=== PATIENT | female | born 1945 | race Caucasian/White ===

== ENCOUNTER 2017-07-14 03:24 | Inpatient (IN) ==
[2017-07-14] MEDS ORDERED: LIDOCAINE 1% 20 ML VIAL SQ ONE (03:25)
[2017-07-14 04:52] LABS: Basophils # (Auto) 0 K/mcL (0.0-0.3); Basophils % (Auto) 0.2 % (0.0-2.0); Eosinophils # (Auto) 0 K/mcL (0.0-0.7); Eosinophils % (Auto) 0.9 % (0.0-7.0); Granulocytes % (Auto) 43.7 % (38.0-78.0); Lymphocytes # (Auto) 2.4 K/mcL (1.5-4.8); Lymphocytes % (Auto) 55.1 % (15.5-49.0); Mean Cell Volume 99.5 fL (80.0-100.0); Mean Corpuscular HGB Conc 34.8 g/dL (31.0-36.0); Mean Corpuscular Hemoglobin 34.6 pg (26.0-34.0); Monocytes # (Auto) 0 K/mcL (0.1-0.9); Monocytes % (Auto) 0.1 % (1.0-12.0); Platelet Count 227 K/mcL (140-440); RBC 3.02 M/mcL (4.00-5.20); Red Cell Distribution Width 14.9 % (11.5-14.5)
[2017-07-14 04:59] LABS: Appearance,Urine CLEAR; Bacteria,Urine 0 /hpf (0); Bilirubin,Urine NEG (NEG); Color,Urine YELLOW; Glucose,Urine (UA) NEGATIVE (NEG); Leukocyte Esterase,Urine NEG /uL (NEG); Mucus,Urine FEW /hpf (0); Protein,Urine NEG (NEG); Specific Gravity,Urine 1.013 (1.000-1.035); Urine Blood NEG mg/dL (<0.03); Urine Hyaline Cast 16 /lpf (0-2); Urine RBC 15 /hpf (0-1); Urine Squamous Epithelial Cell 0 /hpf (0-4); Urine Transitional Epi Cells < 1 /hpf (0-2); Urine WBC < 1 /hpf (0-4); Urobilinogen,Urine NEG (NEG)
[2017-07-14 05:16] LABS: ALT/SGPT 13 U/l (0-40); Albumin 4.1 gm/dL (3.2-5.2); Albumin/Globulin Ratio 1.6 (1.0-2.3); Alkaline Phosphatase 64 U/L (39-117); Blood Urea Nitrogen 13 mg/dl (8-23)
[2017-07-14] MEDS ORDERED: LORazepam 2 MG/ML VIAL IV ONE ×8 (05:18→16:31)
[2017-07-14] MEDS ORDERED: LORazepam 2 MG/ML VIAL ONE ×2 (05:24→16:32)
--- NOTE | 2017-07-14 06:18 | Cat Scan Report ---
CLINICAL INFORMATION: Confusion COMPARISON: 08/26/2015 CT TECHNIQUE: 2.5 mm helical slices were obtained in the skull base to vertex. Following reconstruction, axial reformatted images were reviewed at bone and parenchymal windows. The exam was performed using radiation dose optimization techniques including, but not limited to, automated exposure control, adjustment of the mA and/or kV according to patient size and use of iterative reconstruction technique. FINDINGS: The ventricles, sulci, fissures, and cisterns are normal in size and configuration. No extra-axial fluid collections are identified. The cerebrum, brainstem and cerebellum are unremarkable. There is no evidence of hemorrhage, mass effect, or edema. Bone windows show no osseous abnormality. IMPRESSION: Normal head CT without contrast. Interpreted and Authenticated by: Ricardo Fisher 07/14/17
--- NOTE | 2017-07-14 06:46 | Emergency Department Note ---
Altered Mental Status HPI - General Chief Complaint: Altered Mental Status Stated Complaint: altered LOC Time Seen by Provider: 07/14/17 05:22 Source: family Mode of arrival: ambulatory Limitations: no limitations - History of Present Illness HPI Narrative: This patient started to become a bit confused last evening about 6 PM according to her . Even over the last couple of days the patient seemed to be having some difficulty with the phone and using the remote and he actually joked with her that they need to get checked for Alzheimer's. During the morning (3:00 am) he found her in the bathroom leaning over the sink and very confused. It did not appear that she even knew him. He called EMS and had her transferred to the hospital. In the Emergency room she is calm quietly on her side and does not want to be disturbed. When we try to talk to her or interact with her or move her around she becomes very confused does not want to cooperate. 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 According to the she has been doing quite well recently until last evening although there may have been some early signs in the last couple of days of something amiss. did indicate that she was incontinent of urine when he found her in the bathroom and had urinated in her clothing. MD complaint: altered mental status Onset (ago): hour(s) Timing confirmed by: spouse Severity: severe Consistency of Symptoms: getting worse Associated symptoms: Reports: incontinence - Related Data Home Medications Medication Instructions Recorded Confirmed aspirin 81 mg tablet,delayed 81 mg PO QDAY 06/27/17 07/11/17 release Previous Rx's Medication Instructions Recorded tramadol 50 mg tablet 50 mg PO Q6H PRN #30 tab 09/12/16 Estradiol Transdermal 0.3 mg TRANSDERMA QDAY #30 g 10/04/16 levothyroxine 75 mcg tablet 75 mcg PO QDAY #90 tab 02/07/17 methocarbamol 750 mg tablet 750 mg PO QHS PRN #20 tab 03/13/17 lorazepam 0.5 mg tablet 0.5 mg SUBLINGUAL HS PRN #30 tab 03/14/17 trazodone 50 mg tablet 50 mg PO QHS PRN #20 tab 05/11/17 Testosterone Transdermal 5 mg TRANSDERMA QDAY #30 g 06/23/17 amlodipine 5 mg tablet 5 mg PO QDAY #90 tab 04/03/18 hydrochlorothiazide 25 mg tablet 25 mg PO QDAY #90 tab 07/07/17 amoxicillin 875 mg-potassium 1 tab PO bid 10 Days #20 tab 07/11/17 clavulanate 125 mg tablet Allergies Allergy/AdvReac Type Severity Reaction Status Date / Time sumatriptan [From Imitrex] AdvReac Severe Other Verified 07/11/17 10:07 hydrocodone AdvReac Intermediate Nausea Verified 07/11/17 10:07 iodine AdvReac Unknown Hives Verified 07/11/17 10:07 IV CONTRAST Allergy Unknown NEEDS TO Uncoded 07/11/17 10:07 BE PREMEDICATED, HIVES Review of Systems Limitations: ROS unobtainable due to patients medical condition Past Medical History - Past Medical History [facility] Narrative: Medical History (Last Reviewed 07/11/17 @ 10:37 by Rossy Soto DO) Migraine (Acute) Cancer of lymph and blood cells (Chronic) Back pain (Chronic) Hypertension (Chronic) Thyroid disease (Chronic) 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) Anemia (Chronic) Claustrophobia (Chronic) Chronic lymphoid leukemia in remission (Acute) Hypothyroidism (acquired) (Chronic) Hyperlipidemia (Chronic) Allergic rhinitis (Acute) Past Surgical History History of cholecystectomy (Chronic) History of bone marrow biopsy (Chronic 03/11/15) History of dilation and curettage (Acute) Status post tubal ligation (Acute) Status post rotator cuff repair (Chronic) No pertinent past surgical history (Acute) History of colonoscopy (Chronic 06/29/10) Medical history: Reports: cancer (CLL in remission), hyperlipidemia, hypertension, migraine, thyroid disease, other (Menopause on hormone therapy) Psychiatric history: Reports: no psych history [employer]IAN history: Reports: bilateral tubal ligation, other (DNC) Surgical history ED: Reports: non-contributory - Social History smoking status: Never smoker Alcohol use: Reports: None Drug use: Reports: none Physical Exam Limitations: altered mental status General appearance: anxious, malaise Head: atraumatic, normocephalic Eye: Present: normal appearance ENT: normal exam Neck: Present: normal inspection Chest: Present: normal inspection Respiratory: Present: normal lung sounds bilaterally Cardiovascular: Present: regular rate, normal rhythm, normal heart sounds Abdominal: Present: soft. Absent: distention, tenderness Neurological: Present: alert Psychiatric: Present: normal affect, normal mood Skin: Present: warm, dry Course Vital Signs Temperature 99.7 F H 07/14/17 03:27 Pulse Rate 88 07/14/17 03:27 Respiratory Rate 19 07/14/17 03:27 Blood Pressure 108/80 07/14/17 03:27 Pulse Oximetry (%) 98 07/14/17 03:27 Temperature 99.7 F H 07/14/17 03:27 Pulse Rate 74 07/14/17 08:41 Respiratory Rate 19 07/14/17 04:52 Blood Pressure 120/52 07/14/17 08:38 Pulse Oximetry (%) 95 07/14/17 08:41 Altered Mental Status - MDM Narrative Medical decision making narrative: Lab work and CT scan were not remarkable. Lumbar puncture was performed by Dr. Fisher and is pending. Discussed the case with Dr. Wilson and the patient will be admitted to the ICU. We will start her on acyclovir vancomycin and Rocephin and ampicillin. At this time she is pretty sedated from getting the Ativan required to do the CT scan and lumbar puncture. - Lab Data Lab results reviewed: Yes I reviewed the patient's lab results. Result diagrams: 07/14/17 04:05 07/14/17 04:05 Lab Results 07/14/17 07/14/17 07/14/17 Range/Units 04:00 04:05 04:05 WBC 4.4 L (4.5-11.0) K/mcL RBC 3.02 L (4.00-5.20) M/mcL Hgb 10.5 L (12.0-15.0) g/dL Hct 30.1 L (36.0-48.0) % MCV 99.5 (80.0-100.0) fL MCH 34.6 H (26.0-34.0) pg MCHC 34.8 (31.0-36.0) g/dL RDW 14.9 H (11.5-14.5) % Plt Count 227 (140-440) K/mcL MPV 7.1 L (7.4-10.4) fL Gran % 43.7 (38.0-78.0) % Lymph % (Auto) 55.1 H (15.5-49.0) % Wood % (Auto) 0.1 L (1.0-12.0) % Eos % (Auto) 0.9 (0.0-7.0) % Baso % (Auto) 0.2 (0.0-2.0) % Gran # 1.9 (1.8-8.0) K/mcL Lymph # (Auto) 2.4 (1.5-4.8) K/mcL Wood # (Auto) 0 L (0.1-0.9) K/mcL Eos # (Auto) 0 (0.0-0.7) K/mcL Baso # (Auto) 0 (0.0-0.3) K/mcL VBG Lactic Acid (0.5-2.2) mmol/L Sodium 127 L (133-145) mmol/L Potassium 3.6 (3.3-5.1) mmol/L Chloride 87 L (96-108) mmol/L Carbon Dioxide 28 (22-30) mmol/L Anion Gap 12.0 (8-16) BUN 13 (8-23) mg/dl Creatinine 0.9 (0.6-1.1) mg/dl GFR Calculation 63 Glucose 146 H (70-105) mg/dL Calcium 9.0 (8.6-10.4) mg/dl Total Bilirubin 0.4 (0.0-1.0) mg/dL AST 17 (0-37) U/l ALT 13 (0-40) U/l Alkaline Phosphatase 64 (39-117) U/L Total Protein 6.6 (5.9-8.4) gm/dL Albumin 4.1 (3.2-5.2) gm/dL Globulin 2.5 (2.2-3.7) gm/dL Albumin/Globulin Ratio 1.6 (1.0-2.3) Urine Color Yellow Urine Appearance Clear Urine pH 7.0 (5.0-9.0) Ur Specific [place] 1.013 (1.000-1.035) Urine Protein Neg (NEG) mg/dL Urine Glucose (UA) Negative (NEG) mg/dL Urine Ketones 20 A (NEG) mg/dL Urine Occult Blood Neg (<0.03) mg/dL Urine Nitrate Neg (NEG) Urine Bilirubin Neg (NEG) mg/dL Urine Urobilinogen Neg (NEG) mg/dL Ur Leukocyte Esterase Neg (NEG) /uL Urine RBC 15 H (0-1) /hpf Urine WBC < 1 (0-4) /hpf Ur Squamous Epith Cells 0 (0-4) /hpf Ur Transition Epith Cell < 1 (0-2) /hpf Urine Bacteria 0 (0) /hpf Hyaline Casts 16 H (0-2) /lpf Urine Mucus Few (0) /hpf Ur Culture Indicated? No 07/14/17 Range/Units 04:05 WBC (4.5-11.0) K/mcL RBC (4.00-5.20) M/mcL Hgb (12.0-15.0) g/dL Hct (36.0-48.0) % MCV (80.0-100.0) fL MCH (26.0-34.0) pg MCHC (31.0-36.0) g/dL RDW (11.5-14.5) % Plt Count (140-440) K/mcL MPV (7.4-10.4) fL Gran % (38.0-78.0) % Lymph % (Auto) (15.5-49.0) % Wood % (Auto) (1.0-12.0) % Eos % (Auto) (0.0-7.0) % Baso % (Auto) (0.0-2.0) % Gran # (1.8-8.0) K/mcL Lymph # (Auto) (1.5-4.8) K/mcL Wood # (Auto) (0.1-0.9) K/mcL Eos # (Auto) (0.0-0.7) K/mcL Baso # (Auto) (0.0-0.3) K/mcL VBG Lactic Acid 1.1 (0.5-2.2) mmol/L Sodium (133-145) mmol/L Potassium (3.3-5.1) mmol/L Chloride (96-108) mmol/L Carbon Dioxide (22-30) mmol/L Anion Gap (8-16) BUN (8-23) mg/dl Creatinine (0.6-1.1) mg/dl GFR Calculation Glucose (70-105) mg/dL Calcium (8.6-10.4) mg/dl Total Bilirubin (0.0-1.0) mg/dL AST (0-37) U/l ALT (0-40) U/l Alkaline Phosphatase (39-117) U/L Total Protein (5.9-8.4) gm/dL Albumin (3.2-5.2) gm/dL Globulin (2.2-3.7) gm/dL Albumin/Globulin Ratio (1.0-2.3) Urine Color Urine Appearance Urine pH (5.0-9.0) Ur Specific [place] (1.000-1.035) Urine Protein (NEG) mg/dL Urine Glucose (UA) (NEG) mg/dL Urine Ketones (NEG) mg/dL Urine Occult Blood (<0.03) mg/dL Urine Nitrate (NEG) Urine Bilirubin (NEG) mg/dL Urine Urobilinogen (NEG) mg/dL Ur Leukocyte Esterase (NEG) /uL Urine RBC (0-1) /hpf Urine WBC (0-4) /hpf Ur Squamous Epith Cells (0-4) /hpf Ur Transition Epith Cell (0-2) /hpf Urine Bacteria (0) /hpf Hyaline Casts (0-2) /lpf Urine Mucus (0) /hpf Ur Culture Indicated? - Radiology Data Radiology results reviewed: Yes I reviewed the patient's radiology results. Disposition Pt seen by CHILD AND FAMILY SERVICES WORKER/PA only: No Clinical Impression: Altered mental status Disposition: Xfer As Inpt ([facility]) Condition: Fair Referrals: Seth Ramesh MD [Primary Care Provider] - Time of Disposition: 08:47
[2017-07-14] MEDS ORDERED: VANCOMYCIN 1,000 MG in 0.9 % SODIUM CHLORIDE 250 ML IV ONE ×2 (07:03→08:30)
[2017-07-14] MEDS ORDERED: cefTRIAXone 2 GM VIAL IV ONE (07:03)
[2017-07-14] MEDS ORDERED: AMPICILLIN SODIUM 2 GM VIAL IV ONE (07:03)
[2017-07-14] MEDS ORDERED: PROPOFOL 200 MG/20 ML VIAL IV ONE (08:00)
[2017-07-14] MEDS ORDERED: ACYCLOVIR SODIUM 500 MG VIAL IV ONE (08:00)
[2017-07-14] MEDS ORDERED: KETAMINE 100 MG/ML ML IV ONE ×3 (08:00→14:30)
[2017-07-14] MEDS ORDERED: MIDAZOLAM 5 MG/5 ML VIAL IV ONE ×3 (08:00→14:30)
--- NOTE | 2017-07-14 08:50 | XRay Report ---
CLINICAL INFORMATION: Obtundation COMPARISON: None. TECHNIQUE: The procedure and risks including the possibility of bleeding, infection, CSF leak requiring blood patch were explained to the patient. They understood and wished to proceed. They were administered Versed and Fentanyl intravenously prior to and during the procedure while pulse oximetry and blood pressure were monitored by the department of anesthesia. Please see medication sheet for dose. Total sedation time: Under fluoroscopic guidance, the L1-2 intralaminar space was marked, prepped and locally anesthetized with 1% Lidocaine using a 25 gauge needle. A 22 gauge spinal needle was placed under fluoroscopy through the intralaminar space into the thecal sac. Only 1 cc of sanguinous tinged CSF could be aspirated. It was sent to pathology for requested studies. There was no apparent complication. The patient tolerated procedure well. IMPRESSION: Fluoroscopic guided lumbar puncture yielding only 1 cc of sanguinous tinged CSF. No apparent complications. Interpreted and Authenticated by: Ricardo Fisher 07/14/17
[2017-07-14] MEDS ORDERED: AMPICILLIN SODIUM 2 GM in 0.9 % SODIUM CHLORIDE 100 ML IV ONE (09:00)
[2017-07-14] MEDS ORDERED: SODIUM CHLORIDE 0.9% IV ONE (09:30)
[2017-07-14] MEDS ORDERED: ACYCLOVIR SODIUM IV ONE (09:30)
[2017-07-14] MEDS ORDERED: THIAMINE 100 MG in 0.9 % SODIUM CHLORIDE 50 ML IV STA (10:29)
[2017-07-14] MEDS ORDERED: ACETAMINOPHEN 1,000 MG/100 ML BOTTLE IV PRN (10:29)
[2017-07-14] MEDS ORDERED: ONDANSETRON 4 MG/2 ML VIAL IV PRN (10:29)
[2017-07-14] MEDS ORDERED: VANCOMYCIN PER PHARMACY IV ONE (10:29)
[2017-07-14] MEDS ORDERED: AMPICILLIN SODIUM 2 GM VIAL IV SCH (10:29)
[2017-07-14] MEDS ORDERED: DEXTROSE 5%-NS 1,000 ML IV SCH (10:29)
[2017-07-14] MEDS ORDERED: ACETAMINOPHEN 325 MG TABLET PO PRN (10:29)
[2017-07-14] MEDS ORDERED: VANCOMYCIN PER PHARMACY IV SCH (10:45)
[2017-07-14] MEDS ORDERED: SODIUM CHLORIDE 0.9% IV SCH ×2 (10:45→17:00)
[2017-07-14] MEDS ORDERED: ACYCLOVIR SODIUM IV SCH ×2 (10:45→17:00)
--- NOTE | 2017-07-14 11:34 | Internal Med History&Physical ---
Medical - H&P: HPI Patient information: Note initiated : 07/14/17 at 11:23 am Service Date, if different from initiated Date: [] Patient: Sravanthi Ojeda 71 y/o F admitted on 07/14/17 for altered LOC. Chief Complaint: Confusion History of present illness: The patient is a 71-year-old female with past medical history significant for chronic lymphocytic leukemia in remission, hypertension, hypothyroidism, hypercholesterolemia and history of migraine as well as a history of disseminated zoster last October. She presents to the emergency department with confusion. History is obtained in speaking with the patient's family, which includes her , sister, granddaughter who are in the room, as well as speaking with Dr. Solis, and reviewing old records which are obtained and summarized below. The patient is unable to give history due to her mental status. Patient was doing fairly well until yesterday, somewhere about midday. She been treated with Augmentin as well as mucolytic for recurrent sinusitis, and received those prescriptions on the . Her cough is actually been improving. It been nonproductive. Patient ate breakfast normally yesterday. She spoke with her daughter on the phone about 10 AM, seemed to be her usual self. By about 3:00, when family arrived, they noted that she seemed to be a bit withdrawn, and her reported she did had some trouble trying to answer her phone in the early afternoon. That evening at dinner she did not have any conversation, she was withdrawn, did not eat any of her meal. The patient has been put her to bed about 5:30 PM. He told her job, she laughed at the joke appropriately. He checked on her hourly, when asked how she was she replied "fine". At 2:30 this morning, he awoke, found her in the bathroom standing up against a counter with her head drooped down. She been incontinent of urine. He thinks she had gotten up to use the commode, become confused, had an episode of incontinence and couldn't find her way back to bed. He carried her back to bed, called 911. He notes the bedding was dry, he suspects the incontinence occurred while she was up in the bathroom. She is brought to the hospital for further evaluation. In the emergency department, she cannot really give meaningful replies when she was evaluated by Dr. Solis. She would occasionally startle, and become agitated when moved about. When I see the patient, her sister relays that she recognizes her, but does not recognize her . In retrospect, her notes that a few days ago, she seemed to be fumbling with remotes, having trouble getting them to work as well as sometimes having difficulty activating or answering her phone. Her granddaughter volunteers that for the last week or so she had complained of feeling "down", tired and occasionally seem to have troubles finding her words. In retrospect, since her diagnosis of disseminated zoster last October she had had some episodes of low- grade confusion. Patient has not had any fevers, nor complained of fevers or chills of which her was aware. He has a history of migraine, had migraines back in April of several trips to the ED, but had not had any headaches recently. Did not complain of headache or neck pain yesterday or today. She had a cough for about a week, was seen in minor care on the , treated as noted above. Her cough and actually resolved by yesterday. It been nonproductive. She had no nausea, no vomiting, no abdominal pain, no diarrhea which her is aware. No known seizure disorder, no witnessed seizure activity. The does note that the bed was dry when he put her back to bed prior to calling 911 , suspect she been incontinent of urine while up in the bathroom. The family has noted no dysarthria, no facial droop, no focal limb weakness, no trouble swallowing or choking or other focal neurologic symptoms. Patient and her did travel and were in [place] throughout the month of March, returning home in April. No other travel. No birds in the home, there are 2 dogs and a cat. Patient has a history of CLL, has received chemotherapy on 2 occasions, the last was in 2016. She had a routine follow-up scheduled for July 25. In the emergency department, patient was confused, was unable to provide history , had stable vital signs. Laboratory analysis was notable for a mildly decreased serum sodium 127, white count of 4.4 thousand. Subsequently she has had lumbar puncture by interventional radiology, is now being admitted for further evaluation of encephalopathy, rule out meningitis/encephalitis. 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 Never smoked, rare alcohol use. Medical - H&P: Meds Home Medications Medication Instructions Recorded Confirmed Type tramadol 50 mg tablet 50 mg PO Q6H PRN #30 tab 09/12/16 07/11/17 Rx Estradiol Transdermal 0.3 mg TRANSDERMA QDAY #30 g 10/04/16 07/11/17 Rx levothyroxine 75 mcg tablet 75 mcg PO QDAY #90 tab 02/07/17 07/11/17 Rx methocarbamol 750 mg tablet 750 mg PO QHS PRN #20 tab 03/13/17 07/11/17 Rx lorazepam 0.5 mg tablet 0.5 mg SUBLINGUAL HS PRN #30 tab 03/14/17 07/11/17 Rx trazodone 50 mg tablet 50 mg PO QHS PRN #20 tab 05/11/17 07/11/17 Rx Testosterone Transdermal 5 mg TRANSDERMA QDAY #30 g 06/23/17 07/11/17 Rx amlodipine 5 mg tablet 5 mg PO QDAY #90 tab 06/27/17 07/11/17 Rx aspirin 81 mg tablet,delayed 81 mg PO QDAY 06/27/17 07/11/17 History release hydrochlorothiazide 25 mg tablet 25 mg PO QDAY #90 tab 07/07/17 07/11/17 Rx amoxicillin 875 mg-potassium 1 tab PO bid 10 Days #20 tab 07/11/17 07/11/17 Rx clavulanate 125 mg tablet Allergies Allergy/AdvReac Type Severity Reaction Status Date / Time sumatriptan [From Imitrex] AdvReac Severe Other Verified 07/11/17 10:07 hydrocodone AdvReac Intermediate Nausea Verified 07/11/17 10:07 iodine AdvReac Unknown Hives Verified 07/11/17 10:07 IV CONTRAST Allergy Unknown NEEDS TO Uncoded 07/11/17 10:07 BE PREMEDICATED, HIVES Medical - H&P: Exam - Constitutional Vitals: Temp Pulse Resp BP Pulse Ox 99.7 F H 78 19 126/47 95 07/14/17 10:39 07/14/17 10:39 07/14/17 10:39 07/14/17 10:39 07/14/17 10:39 GENERAL: Eyes closed, opened eyes to her sister's voice only, started pulling on betting and moving around when examined. HEENT: Atraumatic. Pupils 3 mm and reactive to direct light. No spontaneous nystagmus. Conjunctiva clear, no scleral icterus. Oropharynx with moist mucous membranes, no lip or gum lesions. Tongue midline. Face symmetric NECK: Normal range of motion with rotation to the left and right. Patient resists passive flexion of neck, though not rigid. No thyromegaly appreciated. RESPIRATORY: Breath sounds clear bilaterally, with shallow inspiratory effort. Respiratory effort is unlabored. CARDIOVASCULAR: Regular rate and rhythm, no murmur gallop or rub. No peripheral edema. Carotid pulses 2+ without bruit. Pedal pulses 2+. GI: Abdomen soft, no apparent tenderness. Bowel sounds are present. No hepatosplenomegaly. LYMPHATIC: No cervical or supraclavicular lymphadenopathy appreciated. MUSCULOSKELETAL: No joint erythema or swelling, moves all 4 extremities equally spontaneously. Range of motion appears normal. Muscle mass normal. SKIN: Intact, warm, dry. No rash, no petechiae, no purpura. Residual hyperpigmented area on the superior aspect of the forehead and scalp. Scattered postherpetic hyperpigmented lesions on the legs. Skin turgor normal. NEUROLOGIC: Exam difficult, face is symmetric, pupils are reactive to direct light bilaterally. No spontaneous nystagmus. Tongue is midline. She moves all extremities spontaneously. Muscle tone is normal. PSYCHIATRIC: Encephalopathy, unable to test orientation, affect or insight. Medical - H&P: Reslt - Labs CBC & Chem 7: 07/14/17 04:05 07/14/17 04:05 Labs: Short CBC 07/14/17 Range/Units 04:05 WBC 4.4 L (4.5-11.0) K/mcL Hgb 10.5 L (12.0-15.0) g/dL Hct 30.1 L (36.0-48.0) % Plt Count 227 (140-440) K/mcL BMP 07/14/17 04:05 Sodium 127 L Potassium 3.6 Chloride 87 L Carbon Dioxide 28 BUN 13 Creatinine 0.9 Glucose 146 H Calcium 9.0 Liver Function 07/14/17 Range/Units 04:05 Total Bilirubin 0.4 (0.0-1.0) mg/dL AST 17 (0-37) U/l ALT 13 (0-40) U/l Alkaline Phosphatase 64 (39-117) U/L Albumin 4.1 (3.2-5.2) gm/dL Urine 07/14/17 Range/Units 04:00 Urine Color Yellow Urine Appearance Clear Urine pH 7.0 (5.0-9.0) Ur Specific [place] 1.013 (1.000-1.035) Urine Protein Neg (NEG) mg/dL Urine Glucose (UA) Negative (NEG) mg/dL - Imaging and Cardiology Chest x-ray Status: image reviewed by me Additional comments: clear, no infiltrate CT scan - head Status: image reviewed by me Additional comments: IMPRESSION: Normal head CT without contrast Medical - H&P: A/P (1) Encephalopathy acute Current visit: Yes Status: Acute (2) Chronic lymphoid leukemia in remission Problem details: In the lymph nodes, not in the blood, like they first thought in 2006 Current visit: No Status: Acute (3) Hypertension Current visit: No Status: Chronic (4) Hypothyroidism (acquired) Current visit: No Status: Chronic - Narrative A/P Narrative: 71-year-old female with fairly abrupt onset of altered mental status, presenting with encephalopathy. Encephalopathy. Concerning for [employer] infection (meningitis or encephalitis) given the fairly abrupt onset. However there is a history of some mild cognitive dysfunction earlier this week, perhaps for the last several weeks that may suggest a more indolent process. Differential diagnosis concerning for HSV encephalitis or VZV encephalitis, particularly given her recent history of disseminated zoster. Bacterial meningitis will need to be ruled out, as well as other aseptic meningitis syndromes. Other possibilities include fungal meningitis, including Cryptococcus or Coccidioides (recent travel to [place]). Patient does have CLL in remission, though has not received stem cell transplant , HHV6, EBV and CMV remain in the differential, as does adenovirus (though no antecedent GI symptoms). VDRL will need to be evaluated, as other noninfectious causes including checking TSH, checking ABG to rule out occult hypercapnia, checking urine drug screen for occult ingestion. Recurrent CLL with meningeal involvement needs to be considered. Cerebral ischemia also is in the differential, though no evidence of stroke on initial CT. Pending results of the remainder of the workup, MRI of the head may need to be obtained. The patient has a history of hypertension, blood pressure is normal, lower suspicion this represents hypertensive encephalopathy or press syndrome. She also has a history of migraine, has not had recent migraines, generally has auras with headache associated with migraine. Lower suspicion this represents a post ictal state or nonstatus epilepticus, though this will be kept in mind. Thiamine supplementation will also be given. The initial LP has been obtained, results are pending. However less than 1 mL of CSF was able to be obtained. Send out labs including viral PCR's and not be done on the current sample. Depending on the results of the current sample, particularly if no evidence of bacterial infection, she may need repeat lumbar puncture for further CSF sampling and testing including Coccidioides antibody, encephalitis panel, HSV and VZV testing. Plan: 1. Inpatient admission to telemetry for close neurologic monitoring 2. Droplet percussions 3. Treat with vancomycin, ampicillin (to cover listeria), ceftriaxone as well as acyclovir. Narrow as able. 4. Follow-ups initial CSF results 5. Check ABG, TSH, urine drug screen 6. Provide thiamine supplement 7. Serial neuro checks 8. Will consider MRI if above studies nonrevealing 9. May require repeat CSF sampling for further diagnostic studies Hypertension. Currently normotensive. Patient's currently unable to take oral in take. For now we'll follow her blood pressure, use intravenous when necessary's if needed. Plan: Monitor, when necessary IV BP meds. CLL, currently in remission. Old records are being sought. History of disseminated zoster, October 2016. No vesicular or other lesions to suggest cutaneous outbreak. VZV encephalitis though remains in the differentials above. CODE STATUS: Discussed with the patient's and family, at this point could status is full code. If airway protection is an issue, he may need to intubate to protect airway. Prophylaxis: Lovenox, IV PPI
[2017-07-14 11:50] LABS: Appearance,CSF CLEAR; Nucleated Cells,CSF 68 /cumm (0-5); Red Blood Cell,CSF 2165 /cumm (0-1)
[2017-07-14 11:53] LABS: Amphetamine Screen,Urine NONE DETECTED (NONDETECTED); Benzodiazepines Screen,Urine SUSPECT POSITIVE (NONDETECTED); Cocaine Screen,Urine NONE DETECTED (NONDETECTED); Opiate Screen,Urine SUSPECT POSITIVE (NONDETECTED); Oxycodone, Urine Screen NONE DETECTED (NONDETECTED)
[2017-07-14] MEDS ORDERED: LORazepam 2 MG/ML VIAL IV PRN (12:27)
[2017-07-14] MEDS ORDERED: 0.9 % SODIUM CHLORIDE 10 ML SYRINGE IV SCH ×2 (14:00→21:00)
[2017-07-14] MEDS ORDERED: GLYCOPYRROLATE 0.2 MG/ML VIAL IV ONE ×2 (14:25→14:30)
[2017-07-14] MEDS ORDERED: AMPICILLIN SODIUM 2 GM in 0.9 % SODIUM CHLORIDE 100 ML IV SCH (15:00)
[2017-07-14] MEDS ORDERED: ACYCLOVIR SODIUM 500 MG VIAL IV SCH (15:00)
[2017-07-14] MEDS ORDERED: 0.9 % SODIUM CHLORIDE 10 ML SYRINGE IV PRN (15:00)
--- NOTE | 2017-07-14 16:00 | Procedure Note ---
Procedures - Central Line Placement Right IJ Consent obtained: written consent Time out performed: Yes Patient placed on monitor/pulse ox: Yes MD prep: mask, sterile gown, sterile gloves, cap Central line prep: 2% Chlorhexidine scrub (X2) Local anesthesia used: lidocaine 1% Amount of anesthesia used (mls): 10 Ultrasound used for placement: No Central line lumen inserted: quad, 16 cm Post procedure: sutured in place, good blood return, all ports aspirated, flushed, capped, sterile dressing applied Post procedure x-ray: tip of catheter in good position, no pneumothorax seen Patient tolerated procedure: well, no complications, other (1st attempt RSCV, unable to wire, change to R IJ, without difficulty.) Complications: none, hematoma at puncture site (RSCV) Additional comments: called by luis a rodriguez for central line in ICU for aloc. presumably ordered by hospitalist, no communication to that effect. also notified that pt to return to [facility] for 2nd attempt lp. spoke w vinicio , he is ok to combine central line/lp by ks w sedation in icu. pt requires significant sedation due to aloc. RSCV attempt, unable tho wire. change to RIJ, no problem. spoke w family, noted csf heme tube 1-4, possible trauma from prior attempt vs SAH. family aware.
--- NOTE | 2017-07-14 16:05 | XRay Report ---
CLINICAL INFORMATION: Central line placement COMPARISON: 07/11/2017 FINDINGS: Right IJ central line tip overlies the SVC right atrial junction. No pneumothorax or other complication from line placement. Cardiomediastinal silhouette and pulmonary vessels are normal for portable technique. Lungs are clear. No effusions. IMPRESSION: Negative chest. Right IJ central line in satisfactory position. No complication from line placement. Interpreted and Authenticated by: Ricardo Fisher 07/14/17
--- NOTE | 2017-07-14 18:00 | Magnetic Resonance Report ---
CLINICAL INFORMATION: Obtundation COMPARISON: None. TECHNIQUE: Sagittal T1 FLAIR, axial diffusion ADC, T1 FLAIR, T2 FLAIR propeller, T2 propeller gradient, T1 post Magnevist and coronal T1 FLAIR post Magnevist images were acquired. FINDINGS: The ventricles, sulci, fissures and cisterns are symmetrically enlarged compatible with mild atrophy - expected for age. No extra-axial fluid collections or masses appreciated. There are multiple (greater than 15) foci of restricted diffusion generally within the cortical medullary junction of both cerebral hemispheres ranging between three and 11 mm. Axial T2 FLAIR images show modest edema surrounding many of the larger lesions. Findings are most compatible with multiple nonhemorrhagic lacunar infarcts in a watershed distribution. The axial T2 FLAIR images also show scattered chronic ischemic foci in the cerebral white matter typical for age. The post Magnevist images show mild vascular enhancement of all of the higher order cerebral arteries the cerebral hemisphere which is presumably a large reperfusion phenomenon related to the multiple tiny nonhemorrhagic acute infarcts. A 4 mm focus of enhancement enhancement in the frontal white matter (axial image nine) and a 3 mm focus of enhancement in the right lentiform nucleus (axial image 11) likely represent enhancing small infarcts. No evidence of hemorrhage , edema or mass effect. Signal void in intracerebral arteries, extra-axial cranial nerves, pituitary and orbits are normal. IMPRESSION: Multiple small foci of restricted diffusion in the cortical medullary junction of both cerebral hemispheres. Findings are most compatible with multiple acute nonhemorrhagic lacunar infarcts. Most likely explanation would be emboli from a cardiac source. It is possible, but less likely, that these represent septic emboli. Please correlate with transesophageal echocardiogram to exclude cardiac thrombus Interpreted and Authenticated by: Ricardo Fisher 07/14/17
[2017-07-14] MEDS ORDERED: GADOBUTROL 7.5 MMOL/7.5 ML VIAL IV ONE (18:02)
--- NOTE | 2017-07-14 20:25 | Discharge Summary ---
Medical - DS: Prov Patient information: Note initiated : 07/14/17 at 8:21 pm Service Date, if different from initiated Date: [] Patient: Sravanthi Ojeda 71 y/o F admitted on 07/14/17 for altered LOC. Date of admission: 07/14/17 10:30 Discharge date: 07/14/17 Primary care physician: Seth Ramesh Admitting clinician: Christen Barboza Consults: 07/14/17 06:52 Consult to Physician [CONS] Stat Comment: Consulting Provider: Christen Barboza Reason For Exam: Physician to Consult 07/14/17 08:28 Consult to Physician [CONS] Stat Comment: Consulting Provider: Regina Lorenzo Reason For Exam: Physician to Consult Discharging clinician: Christen Barboza Medical - DS: Meds - Discharge Medications Active and Home Medications: Home Medications tramadol 50 mg tablet 50 mg PO Q6H PRN #30 tab 09/12/16 [Rx Confirmed 07/11/17 Last Taken 11/08/16] Estradiol Transdermal 0.3 mg TRANSDERMA QDAY #30 g 10/04/16 [Rx Confirmed Last Taken 11/14/16] levothyroxine 75 mcg tablet 75 mcg PO QDAY #90 tab 02/07/17 [Rx Confirmed Last Taken Unknown] methocarbamol 750 mg tablet 750 mg PO QHS PRN #20 tab 03/13/17 [Rx Confirmed Last Taken Unknown] lorazepam 0.5 mg tablet 0.5 mg SUBLINGUAL HS PRN #30 tab 03/14/17 [Rx Confirmed 07/11/17 Last Taken Unknown] trazodone 50 mg tablet 50 mg PO QHS PRN #20 tab 05/11/17 [Rx Confirmed 07/11/17 Last Taken Unknown] Testosterone Transdermal 5 mg TRANSDERMA QDAY #30 g 06/23/17 [Rx Confirmed 07/11 Last Taken Unknown] amlodipine 5 mg tablet 5 mg PO QDAY #90 tab 06/27/17 [Rx Confirmed 07/11/17 Last Taken Unknown] aspirin 81 mg tablet,delayed release 81 mg PO QDAY 06/27/17 [History Confirmed 07/11/17 Last Taken Unknown] hydrochlorothiazide 25 mg tablet 25 mg PO QDAY #90 tab 07/07/17 [Rx Confirmed Last Taken Unknown] amoxicillin 875 mg-potassium clavulanate 125 mg tablet 1 tab PO bid 10 Days #20 tab 07/11/17 [Rx Confirmed 07/11/17 Last Taken Unknown] Medical - DS: Hosp Hospital course: The patient is a 71-year-old female who presented with encephalopathy. She had seemed withdrawn, minimally communicative at dinner. checked on her hourly overnight. At 2:30 AM, she was leaning against a counter in the bathroom , had been incontinent of urine while in the bathroom. She was confused, did not seem to recognize him. He called 911 at that point where she presented to the ED. For full details, please see my history and physical. Patient was admitted and evaluated further for causes of encephalopathy, rule out meningitis/rule out encephalitis. Her past history is significant for CLL, status post chemotherapy 2, in remission, as well as a history of disseminated zoster in October 2016. She receives her cancer care at [facility] in [place]. Her database coordinator, evaluated the zoster is Buddy Montejo M.D. at [facility] [place]. The initial CSF sample which was obtained under fluoroscopic guidance only yielded 1 mL of fluid. He was initially clear, and became blood tinged. Initial cell count was 2165 RBC, 68 nucleated cells. Glucose was 60, total protein elevated at 79. Gram stain showed many red cells, moderate mononuclear cells, rare polys and no organisms. She was initially treated broadly with vancomycin, ceftriaxone and ampicillin. She was also treated with acyclovir for possible herpetic encephalitis or zoster encephalitis. Given the negative bacterial workup, repeat LP was obtained in the afternoon, further fluid was sent for HSV and VZV PCR, encephalopathy panel, cryptococcal and Coccidioides studies (she and her spend March in [place]). Shes had no other travel to tropical her other locations. Further workup included MRI, which was finally obtained. That showed rather than areas of meningeal involvement, multiple small foci of restricted diffusion in the cortical medullary junction of both cerebral hemispheres, most compatible with multiple acute nonhemorrhagic lacunar infarcts. Suggesting emboli from a cardiac source. Septic emboli are also in the differential, though bloodstream infection is not currently suspected. Further review of the chart as well as rhythm strips obtained since her arrival to this facility if shown no history or current evidence of atrial fibrillation. 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 Dr. Cooper agreed patient would benefit from inpatient neurology evaluation. Neither inpatient nor outpatient neurology are available at this facility. Echocardiogram is not available for several days and transesophageal echocardiography is not available at all at this facility. The patient did not receive antithrombotics or anticoagulants or statin at this discharge, therapy/rehab evaluations due to transfer to a higher level of care. Likewise, she was discharged in less than 2 midnights due to the transfer. At the time of transfer, the patient is still demonstrating encephalopathy. She is still when quiet, though startles and is agitated with any movement or interventions. Her MAXIMUM TEMPERATURE has been 99.7, pulse has been stable, blood pressure in the 110-120s systolic. She is maintaining saturations of 95- 100% on room air. Medications at the time of transfer Acetaminophen when necessary Enoxaparin 40 mg daily Lorazepam 1 mg every 2 hours when necessary Zofran 4 mg every 4-6 hours when necessary Acyclovir 640 mg every 8 hours Ampicillin 2 g IV every 6 hours Ceftriaxone 2 g IV every 12 hours Vancomycin 1 g daily. 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 Secondary discharge diagnosis: Chronic lymphocytic leukemia, and remission Hypertension History of disseminated zoster, October 2016 Hypothyroidism History of migraine - Time Spent with Patient Total time spent providing and/or coordinating discharge services: Greater than 30 minutes Medical - DS: Exam - Constitutional Vitals: Vital Signs Temp Pulse Pulse Resp BP BP BP 07/14/17 20:02 98.2 F 73 107/40 07/14/17 20:00 98.2 F 72 76 16 101/65 107/40 07/14/17 19:46 98.7 F 16 98/54 07/14/17 19:31 98/54 04/20/18 19:01 101/40 07/1418 18:31 71 107/44 2018 18:15 98.7 F 16 107/47 18 18:00 69 107/47 18 17:31 114/79 18 17:00 76 14 137/47 18 16:55 77 14 149/58 2018 16:50 74 14 157/51 18 16:45 74 16 169/55 18 16:40 16 93/53 18 16:30 18 148/62 18 16:20 75 18 154/65 18 11:01 73 117/58 07/14/17 10:46 70 116/41 07/14/17 10:44 99 F 72 110/46 18 10:39 99.7 F H 78 19 126/47 07/14/17 10:30 99 F 77 16 110/46 07/14/17 10:23 78 07/14/17 09:30 78 126/47 07/14/17 09:01 80 105/48 07/14/17 08:54 73 18 08:45 72 109/48 18 08:41 74 07/14/17 08:38 74 120/52 18 05:40 86 146/54 18 04:52 87 19 07/14/17 03:27 99.7 F H 88 19 108/80 Pulse Ox 07/14/17 20:02 97 07/14/17 20:00 100 07/14/17 19:46 97 18 19:31 18 19:01 18 18:31 96 18 18:15 97 18 18:00 96 18 17:31 18 17:00 97 07/14/17 16:55 97 07/14/17 16:50 96 18 16:45 96 07/14/17 16:40 99 18 16:30 97 18 16:20 96 07/14/17 11:01 99 07/14/17 10:46 99 07/14/17 10:44 100 07/14/17 10:39 95 07/14/17 10:30 100 07/14/17 10:23 95 07/14/17 09:30 97 07/14/17 09:01 97 07/14/17 08:54 97 07/14/17 08:45 95 07/14/17 08:41 95 07/14/17 08:38 95 07/14/17 05:40 98 07/14/17 04:52 98 07/14/17 03:27 98 Intake and Output 07/14/17 07/14/17 07/14/17 05:59 13:59 21:59 Intake Total 501 / 501 483 / 483 Balance 501 / 501 483 / 483 Intake: IV 501 / 501 483 / 483 Zovirax 640 mg In Sodium 100 / 100 Chloride 0.9% 100 ml @ 100 mls/ hr IV ONCE ONE Rx#:[id number] Ampicillin 2 gm In Sodium 100 / 100 100 / 100 Chloride 0.9% 100 ml @ 100 mls/ hr IV Q6H [facility] Rx#:[id number] Dextrose 5%-Ns IV Solution 1, 383 / 383 000 ml @ 100 mls/hr IV .Q10H [facility] Rx#:[id number] Vancomycin 1,000 mg In Sodium 250 / 250 Chloride 0.9% 250 ml @ 250 mls/ hr IV ONCE ONE Rx#:[id number] Other: Weight 141 lb 137 lb 12.8 oz Patient Weight 07/15/17 05:59 Weight 137 lb 12.8 oz Unchanged from admission earlier today- General: Quiet at rest, becomes agitated with any movement. Chest: Clear Cardiovascular: Regular, in sinus rhythm on monitor Abdomen: Soft nontender Neuro: Moves all extremities equally, does not follow commands, demonstrates encephalopathy. Medical - DS: Data Procedures and tests throughout hospitalization: Fluoroscopic guided lumbar puncture Central line placement Repeat lumbar puncture with further CSF collection CT of the head MRI of the head Labs on day of discharge: Labs from last 24 hours 07/14/17 07/14/17 07/14/17 15:45 15:45 15:45 WBC RBC Hgb Hct MCV MCH MCHC RDW Plt Count MPV Gran % Lymph % (Auto) Quay % (Auto) Eos % (Auto) Baso % (Auto) Gran # Lymph # (Auto) Quay # (Auto) Eos # (Auto) Baso # (Auto) VBG Lactic Acid Sodium Potassium Chloride Carbon Dioxide Anion Gap BUN Creatinine GFR Calculation Glucose Calcium Total Bilirubin AST ALT Alkaline Phosphatase Total Protein Albumin Globulin Albumin/Globulin Ratio TSH Urine Color Urine Appearance Urine pH Ur Specific [place] Urine Protein Urine Glucose (UA) Urine Ketones Urine Occult Blood Urine Nitrate Urine Bilirubin Urine Urobilinogen Ur Leukocyte Esterase Urine RBC Urine WBC Ur Squamous Epith Cells Ur Transition Epith Cell Urine Bacteria Hyaline Casts Urine Mucus Ur Culture Indicated? CSF Source CSF Appearance CSF Color CSF RBC CSF Total Nucleated Auto CSF Glucose CSF Total Protein CSF VDRL Pending CSF Coccidioides Ab CF Pending CSF Cryptococcus Ag Pending CSF Herpes I IgG Ab Pending CSF Herpes I IgM Ab Pending CSF Herpes II IgM Ab Pending CSF Lymph choriomen IgG Pending CSF Lymph choriomen IgM Pending CSF Lymph choriomen Int Pending CSF Mumps Virus IgG Ab Pending CSF Mumps Virus IgM Ab Pending CSF Mumps Ab Interpret Pending CSF Rubeola IgG Ab Pending CSF Rubeola IgM Ab Pending CSF Rubeola Interpret Pending CSF [place] IgG Ab Pending CSF [place] IgM Ab Pending Urine Opiates Screen Ur Opiates Confirm Ur Oxycodone Screen Urine Methadone Screen Ur Methadone Confirm Ur Barbiturates Screen Ur Barbiturate Confirm Ur Phencyclidine Scrn Urine PCP Confirm Ur Amphetamines Screen U Benzodiazepines Scrn U Benzodiazepine Confm Urine Cocaine Screen Urine Cocaine Confirm U Cannabinoids Confirm U Marijuana (THC) Screen Urine Alcohol Herpes Simplex Source HSV II IgG Index Pending Herpes Simplex DNA PCR HSV I DNA PCR HSV II DNA PCR VZV IgM Ab (IFA) Pending VZV Total Antibody Pending Varicella-Zoster Interp Pending 07/14/17 07/14/17 07/14/17 15:45 10:55 07:02 WBC RBC Hgb Hct MCV MCH MCHC RDW Plt Count MPV Gran % Lymph % (Auto) Quay % (Auto) Eos % (Auto) Baso % (Auto) Gran # Lymph # (Auto) Quay # (Auto) Eos # (Auto) Baso # (Auto) VBG Lactic Acid Sodium Potassium Chloride Carbon Dioxide Anion Gap BUN Creatinine GFR Calculation Glucose Calcium Total Bilirubin AST ALT Alkaline Phosphatase Total Protein Albumin Globulin Albumin/Globulin Ratio TSH Urine Color Urine Appearance Urine pH Ur Specific [place] Urine Protein Urine Glucose (UA) Urine Ketones Urine Occult Blood Urine Nitrate Urine Bilirubin Urine Urobilinogen Ur Leukocyte Esterase Urine RBC Urine WBC Ur Squamous Epith Cells Ur Transition Epith Cell Urine Bacteria Hyaline Casts Urine Mucus Ur Culture Indicated? CSF Source CSF Appearance CSF Color CSF RBC CSF Total Nucleated Auto CSF Glucose 60 CSF Total Protein CSF VDRL CSF Coccidioides Ab CF CSF Cryptococcus Ag CSF Herpes I IgG Ab CSF Herpes I IgM Ab CSF Herpes II IgM Ab CSF Lymph choriomen IgG CSF Lymph choriomen IgM CSF Lymph choriomen Int CSF Mumps Virus IgG Ab CSF Mumps Virus IgM Ab CSF Mumps Ab Interpret CSF Rubeola IgG Ab CSF Rubeola IgM Ab CSF Rubeola Interpret CSF [place] IgG Ab CSF [place] IgM Ab Urine Opiates Screen Suspect positive A Ur Opiates Confirm Not Reportable Ur Oxycodone Screen None detected Urine Methadone Screen None detected Ur Methadone Confirm Not Reportable Ur Barbiturates Screen None detected Ur Barbiturate Confirm Not Reportable Ur Phencyclidine Scrn None detected Urine PCP Confirm Not Reportable Ur Amphetamines Screen None detected U Benzodiazepines Scrn Suspect positive A U Benzodiazepine Confm Not Reportable Urine Cocaine Screen None detected Urine Cocaine Confirm Not Reportable U Cannabinoids Confirm Not Reportable U Marijuana (THC) Screen None detected Urine Alcohol None detected Herpes Simplex Source Pending HSV II IgG Index Herpes Simplex DNA PCR Pending HSV I DNA PCR Pending HSV II DNA PCR Pending VZV IgM Ab (IFA) VZV Total Antibody Varicella-Zoster Interp 07/14/17 07/14/17 07/14/17 06:58 06:57 04:05 WBC RBC Hgb Hct MCV MCH MCHC RDW Plt Count MPV Gran % Lymph % (Auto) Quay % (Auto) Eos % (Auto) Baso % (Auto) Gran # Lymph # (Auto) Quay # (Auto) Eos # (Auto) Baso # (Auto) VBG Lactic Acid Sodium Potassium Chloride Carbon Dioxide Anion Gap BUN Creatinine GFR Calculation Glucose Calcium Total Bilirubin AST ALT Alkaline Phosphatase Total Protein Albumin Globulin Albumin/Globulin Ratio TSH 1.12 Urine Color Urine Appearance Urine pH Ur Specific [place] Urine Protein Urine Glucose (UA) Urine Ketones Urine Occult Blood Urine Nitrate Urine Bilirubin Urine Urobilinogen Ur Leukocyte Esterase Urine RBC Urine WBC Ur Squamous Epith Cells Ur Transition Epith Cell Urine Bacteria Hyaline Casts Urine Mucus Ur Culture Indicated? CSF Source Tube 1 CSF Appearance Clear CSF Color [place] CSF RBC 2165 H CSF Total Nucleated Auto 68 H CSF Glucose CSF Total Protein 79 H CSF VDRL CSF Coccidioides Ab CF CSF Cryptococcus Ag CSF Herpes I IgG Ab CSF Herpes I IgM Ab CSF Herpes II IgM Ab CSF Lymph choriomen IgG CSF Lymph choriomen IgM CSF Lymph choriomen Int CSF Mumps Virus IgG Ab CSF Mumps Virus IgM Ab CSF Mumps Ab Interpret CSF Rubeola IgG Ab CSF Rubeola IgM Ab CSF Rubeola Interpret CSF [place] IgG Ab CSF [place] IgM Ab Urine Opiates Screen Ur Opiates Confirm Ur Oxycodone Screen Urine Methadone Screen Ur Methadone Confirm Ur Barbiturates Screen Ur Barbiturate Confirm Ur Phencyclidine Scrn Urine PCP Confirm Ur Amphetamines Screen U Benzodiazepines Scrn U Benzodiazepine Confm Urine Cocaine Screen Urine Cocaine Confirm U Cannabinoids Confirm U Marijuana (THC) Screen Urine Alcohol Herpes Simplex Source HSV II IgG Index Herpes Simplex DNA PCR HSV I DNA PCR HSV II DNA PCR VZV IgM Ab (IFA) VZV Total Antibody Varicella-Zoster Interp 07/14/17 07/14/17 07/14/17 04:05 04:05 04:05 WBC 4.4 L RBC 3.02 L Hgb 10.5 L Hct 30.1 L MCV 99.5 MCH 34.6 H MCHC 34.8 RDW 14.9 H Plt Count 227 MPV 7.1 L Gran % 43.7 Lymph % (Auto) 55.1 H Quay % (Auto) 0.1 L Eos % (Auto) 0.9 Baso % (Auto) 0.2 Gran # 1.9 Lymph # (Auto) 2.4 Quay # (Auto) 0 L Eos # (Auto) 0 Baso # (Auto) 0 VBG Lactic Acid 1.1 Sodium 127 L Potassium 3.6 Chloride 87 L Carbon Dioxide 28 Anion Gap 12.0 BUN 13 Creatinine 0.9 GFR Calculation 63 Glucose 146 H Calcium 9.0 Total Bilirubin 0.4 AST 17 ALT 13 Alkaline Phosphatase 64 Total Protein 6.6 Albumin 4.1 Globulin 2.5 Albumin/Globulin Ratio 1.6 TSH Urine Color Urine Appearance Urine pH Ur Specific [place] Urine Protein Urine Glucose (UA) Urine Ketones Urine Occult Blood Urine Nitrate Urine Bilirubin Urine Urobilinogen Ur Leukocyte Esterase Urine RBC Urine WBC Ur Squamous Epith Cells Ur Transition Epith Cell Urine Bacteria Hyaline Casts Urine Mucus Ur Culture Indicated? CSF Source CSF Appearance CSF Color CSF RBC CSF Total Nucleated Auto CSF Glucose CSF Total Protein CSF VDRL CSF Coccidioides Ab CF CSF Cryptococcus Ag CSF Herpes I IgG Ab CSF Herpes I IgM Ab CSF Herpes II IgM Ab CSF Lymph choriomen IgG CSF Lymph choriomen IgM CSF Lymph choriomen Int CSF Mumps Virus IgG Ab CSF Mumps Virus IgM Ab CSF Mumps Ab Interpret CSF Rubeola IgG Ab CSF Rubeola IgM Ab CSF Rubeola Interpret CSF [place] IgG Ab CSF [place] IgM Ab Urine Opiates Screen Ur Opiates Confirm Ur Oxycodone Screen Urine Methadone Screen Ur Methadone Confirm Ur Barbiturates Screen Ur Barbiturate Confirm Ur Phencyclidine Scrn Urine PCP Confirm Ur Amphetamines Screen U Benzodiazepines Scrn U Benzodiazepine Confm Urine Cocaine Screen Urine Cocaine Confirm U Cannabinoids Confirm U Marijuana (THC) Screen Urine Alcohol Herpes Simplex Source HSV II IgG Index Herpes Simplex DNA PCR HSV I DNA PCR HSV II DNA PCR VZV IgM Ab (IFA) VZV Total Antibody Varicella-Zoster Interp 07/14/17 04:00 WBC RBC Hgb Hct MCV MCH MCHC RDW Plt Count MPV Gran % Lymph % (Auto) Quay % (Auto) Eos % (Auto) Baso % (Auto) Gran # Lymph # (Auto) Quay # (Auto) Eos # (Auto) Baso # (Auto) VBG Lactic Acid Sodium Potassium Chloride Carbon Dioxide Anion Gap BUN Creatinine GFR Calculation Glucose Calcium Total Bilirubin AST ALT Alkaline Phosphatase Total Protein Albumin Globulin Albumin/Globulin Ratio TSH Urine Color Yellow Urine Appearance Clear Urine pH 7.0 Ur Specific [place] 1.013 Urine Protein Neg Urine Glucose (UA) Negative Urine Ketones 20 A Urine Occult Blood Neg Urine Nitrate Neg Urine Bilirubin Neg Urine Urobilinogen Neg Ur Leukocyte Esterase Neg Urine RBC 15 H Urine WBC < 1 Ur Squamous Epith Cells 0 Ur Transition Epith Cell < 1 Urine Bacteria 0 Hyaline Casts 16 H Urine Mucus Few Ur Culture Indicated? No CSF Source CSF Appearance CSF Color CSF RBC CSF Total Nucleated Auto CSF Glucose CSF Total Protein CSF VDRL CSF Coccidioides Ab CF CSF Cryptococcus Ag CSF Herpes I IgG Ab CSF Herpes I IgM Ab CSF Herpes II IgM Ab CSF Lymph choriomen IgG CSF Lymph choriomen IgM CSF Lymph choriomen Int CSF Mumps Virus IgG Ab CSF Mumps Virus IgM Ab CSF Mumps Ab Interpret CSF Rubeola IgG Ab CSF Rubeola IgM Ab CSF Rubeola Interpret CSF [place] IgG Ab CSF [place] IgM Ab Urine Opiates Screen Ur Opiates Confirm Ur Oxycodone Screen Urine Methadone Screen Ur Methadone Confirm Ur Barbiturates Screen Ur Barbiturate Confirm Ur Phencyclidine Scrn Urine PCP Confirm Ur Amphetamines Screen U Benzodiazepines Scrn U Benzodiazepine Confm Urine Cocaine Screen Urine Cocaine Confirm U Cannabinoids Confirm U Marijuana (THC) Screen Urine Alcohol Herpes Simplex Source HSV II IgG Index Herpes Simplex DNA PCR HSV I DNA PCR HSV II DNA PCR VZV IgM Ab (IFA) VZV Total Antibody Varicella-Zoster Interp - Impressions Head CT FINDINGS: The ventricles, sulci, fissures, and cisterns are normal in size and configuration. No extra-axial fluid collections are identified. The cerebrum, brainstem and cerebellum are unremarkable. There is no evidence of hemorrhage, mass effect, or edema. Bone windows show no osseous abnormality. IMPRESSION: Normal head CT without contrast. Brain MRI FINDINGS: The ventricles, sulci, fissures and cisterns are symmetrically enlarged compatible with mild atrophy - expected for age. No extra-axial fluid collections or masses appreciated. There are multiple (greater than 15) foci of restricted diffusion generally within the cortical medullary junction of both cerebral hemispheres ranging between three and 11 mm. Axial T2 FLAIR images show modest edema surrounding many of the larger lesions. Findings are most compatible with multiple nonhemorrhagic lacunar infarcts in a watershed distribution. The axial T2 FLAIR images also show scattered chronic ischemic foci in the cerebral white matter typical for age. The post Magnevist images show mild vascular enhancement of all of the higher order cerebral arteries the cerebral hemisphere which is presumably a large reperfusion phenomenon related to the multiple tiny nonhemorrhagic acute infarcts. A 4 mm focus of enhancement enhancement in the frontal white matter (axial image nine) and a 3 mm focus of enhancement in the right lentiform nucleus (axial image 11) likely represent enhancing small infarcts. No evidence of hemorrhage , edema or mass effect. Signal void in intracerebral arteries, extra-axial cranial nerves, pituitary and orbits are normal. IMPRESSION: Multiple small foci of restricted diffusion in the cortical medullary junction of both cerebral hemispheres. Findings are most compatible with multiple acute nonhemorrhagic lacunar infarcts. Most likely explanation would be emboli from a cardiac source. It is possible, but less likely, that these represent septic emboli. Please correlate with transesophageal echocardiogram to exclude cardiac thrombus Medical - DS: A/P - Patient/Caregiver Discharge Instructions Activity: other (bed rest) Diet: NPO (until able to be evaluated by speech) - Problem Maintenance (1) Cerebral infarction due to embolism of cerebral artery Status: Acute (2) Encephalopathy acute Status: Acute (3) Chronic lymphoid leukemia in remission Status: Acute Comment: In the lymph nodes, not in the blood, like they first thought in 2007 (4) Hypertension Status: Chronic Qualifiers: Hypertension type: unspecified Qualified Code(s): I10 - Essential (primary ) hypertension (5) Hypothyroidism (acquired) Status: Chronic - Follow up Plan Disposition: [facility] Prognosis: Serious Rehab Potential: Serious Overall status at discharge: patient is not back to baseline Medical - DS: Qual - VTE Deep Vein Thrombosis/Pulmonary Embolism Present on Admission: No
[2017-07-14] MEDS ORDERED: cefTRIAXone 2 GM in DEXTROSE 5% IN WATER 50 ML IV SCH (21:00)
[2017-07-15] MEDS ORDERED: ENOXAPARIN 40 MG/0.4 ML SYRINGE SQ SCH (09:00)
[2017-07-15] MEDS ORDERED: VANCOMYCIN 1,000 MG in 0.9 % SODIUM CHLORIDE 250 ML IV SCH (09:00)
[2017-07-23 15:00] LABS: LCM IGG <1:1; LCM IGM <1:1; Measles IGG AB CSF <1:64; Measles IGM AB CSF <1:1
== END 2017-07-14 20:50 | disposition short-term general hospital (02) | DRG 64 ==
LOC: ED 03:24 → ICU 10:30
PROVIDERS: ADMIT Internal Medicine; ATTEND Internal Medicine

== ENCOUNTER 2017-08-24 16:49 | Observation (INO) ==
[2017-08-24] MEDS ORDERED: 0.9 % SODIUM CHLORIDE 1,000 ML IV ONE (17:01)
--- NOTE | 2017-08-24 17:05 | Emergency Department Note ---
Altered Mental Status HPI - General Chief Complaint: Altered Mental Status Stated Complaint: Confusion Time Seen by Provider: 08/24/17 16:55 Source: EMS Mode of arrival: EMS Limitations: altered mental status - History of Present Illness HPI Narrative: Patient has been having some increased weakness over the past 24 hours and has been found her after she had fallen patient herself is complaining of no symptoms or pain. Patient denies any head injury or neck pain that she has had a previous CVA and was on aspirin but they took her off that as well she is not on any blood thinners. Her current temperature is 101.9 pulse oximeter is 97%. Her pulse is 97 her blood pressure is 162/76. Patient denies any nausea vomiting there is been no diarrhea. Denies any urgency frequency or dysuria denies any cough there is no shortness of breath. Patient is not showing any neurologic signs or symptoms. states that she has been having some urinary incontinence the last 3 days she has not had this problem previously also having some urgency site sensations. Her urine dip test does show large amount of RBCs and WBCs UA and culture and sensitivity has been performed at this time. patient has cll. - Related Data Home Medications Medication Instructions Recorded Confirmed aspirin 81 mg tablet,delayed 81 mg PO QDAY 06/27/17 08/24/17 release hydrocortisone 1 % topical cream 1 applic TOPICAL BID PRN g 07/28/17 08/24/17 olopatadine 0.1 % eye drops 1 drp OPHTHALMIC BID 07/28/17 08/24/17 Previous Rx's Medication Instructions Recorded levothyroxine 75 mcg tablet 75 mcg PO QDAY #90 tab 02/07/17 ezetimibe 10 mg tablet 10 mg PO QDAY #90 tab 08/02/17 ranitidine 150 mg tablet 150 mg PO BID #120 tab 08/18/17 albuterol sulfate HFA 90 2 puff INHALATION Q6H PRN #8.5 g 08/23/17 mcg/actuation aerosol inhaler azithromycin 250 mg tablet 250 mg PO QDAY #6 tab 08/23/17 codeine 10 mg-guaifenesin 100 mg/5 7.5 ml PO Q6H PRN #120 ml 08/23/17 mL oral liquid magnesium oxide 400 mg capsule 400 mg PO BID #180 cap 08/24/17 Allergies Allergy/AdvReac Type Severity Reaction Status Date / Time atorvastatin [From Lipitor] Allergy Rash Verified 08/24/17 16:49 sumatriptan [From Imitrex] AdvReac Severe Other Verified 08/24/17 16:49 hydrocodone AdvReac Intermediate Nausea Verified 08/24/17 16:49 iodine AdvReac Unknown Hives Verified 08/24/17 16:49 IV CONTRAST Allergy Unknown NEEDS TO Uncoded 08/23/17 11:26 BE PREMEDICATED, HIVES Review of Systems All systems ED: reviewed and negative except as stated. Constitutional: Reports: fever, chills Eyes: Denies: eye pain ENT ED: Denies: ear pain Cardiovascular: Denies: chest pain Respiratory: Denies: shortness of breath Gastrointestinal: Denies: abdominal pain Genitourinary: Reports: as per HPI, urgency, incontinence. Denies: dysuria, frequency, hematuria Musculoskeletal: Denies: back pain Integumentary: Denies: rash, lesions Neurological: Denies: headache, weakness Psychiatric: Denies: anxiety, depression Endocrine: Denies: fatigue Hematological/Lymphatic: Denies: easy bleeding Allergic/Immunologic: Denies: facial swelling Past Medical History - Past Medical History Medical history: Reports: cancer (CLL in remission), CVA, hyperlipidemia, hypertension, migraine, thyroid disease, other (Menopause on hormone therapy, CLL) Psychiatric history: Reports: no psych history HUM[employer] ADMIN history: Reports: bilateral tubal ligation, other (DNC) Surgical history ED: Reports: non-contributory - Social History smoking status: Never smoker Alcohol use: Reports: None Drug use: Reports: none Physical Exam Limitations: altered mental status General appearance: alert Head: atraumatic, normocephalic Eye: Present: normal appearance, PERRL ENT: normal exam, normal oropharynx, mucous membranes moist Neck: Present: normal inspection, full ROM. Absent: trachea midline Chest: Present: normal inspection, symmetric chest wall rise. Absent: tenderness Respiratory: Present: normal lung sounds bilaterally. Absent: respiratory distress, wheezes, stridor Cardiovascular: Present: regular rate, normal rhythm. Absent: bradycardia, tachycardia Abdominal: Present: soft, normal bowel sounds. Absent: distention, tenderness, guarding, rebound, rigidity Extremities: Present: normal inspection, full ROM. Absent: tenderness Back: Present: normal inspection, full ROM. Absent: tenderness Neurological: Present: alert, oriented X3, CN II-XII intact, normal gait, reflexes normal. Absent: motor sensory deficit Psychiatric: Present: normal affect, normal mood Skin: Present: warm, dry Course Vital Signs Temperature 101.9 F H 08/24/17 16:49 Pulse Rate 97 H 08/24/17 16:49 Respiratory Rate 16 08/24/17 16:49 Blood Pressure 162/76 08/24/17 16:49 Pulse Oximetry (%) 97 08/24/17 16:49 Temperature 98.0 F 08/24/17 18:10 Pulse Rate 87 08/24/17 17:39 Respiratory Rate 22 08/24/17 17:01 Blood Pressure 148/99 08/24/17 17:39 Pulse Oximetry (%) 95 08/24/17 17:39 Altered Mental Status - MDM Narrative Medical decision making narrative: pt slide out of bed because of weakness.. she had a fever and ua shows uti . started on levaquin [address] Florian contacted and she will here to evaluate the patient - Lab Data Result diagrams: 08/24/17 17:35 08/24/17 17:35 Lab Results 08/24/17 08/24/17 08/24/17 Range/Units 17:11 17:35 17:35 WBC 3.2 L (4.5-11.0) K/mcL RBC 2.60 L (4.00-5.20) M/mcL Hgb 8.4 L (12.0-15.0) g/dL Hct 25.4 L (36.0-48.0) % MCV 97.5 (80.0-100.0) fL MCH 32.4 (26.0-34.0) pg MCHC 33.2 (31.0-36.0) g/dL RDW 17.0 H (11.5-14.5) % Plt Count 163 (140-440) K/mcL MPV 8.7 (7.4-10.4) fL Band Neutrophils % Not Reportable VBG Lactic Acid (0.5-2.2) mmol/L Sodium 133 (133-145) mmol/L Potassium 4.5 (3.3-5.1) mmol/L Chloride 95 L (96-108) mmol/L Carbon Dioxide 25 (22-30) mmol/L Anion Gap 13.0 (8-16) BUN 11 (8-23) mg/dl Creatinine 0.9 (0.6-1.1) mg/dl GFR Calculation 63 Glucose 120 H (70-105) mg/dL Calcium 8.5 L (8.6-10.4) mg/dl Total Bilirubin 0.3 (0.0-1.0) mg/dL AST 17 (0-37) U/l ALT 14 (0-40) U/l Alkaline Phosphatase 68 (39-117) U/L Total Protein 5.9 (5.9-8.4) gm/dL Albumin 3.2 (3.2-5.2) gm/dL Globulin 2.7 (2.2-3.7) gm/dL Albumin/Globulin Ratio 1.2 (1.0-2.3) Urine Color Yellow Urine Appearance Hazy Urine pH 7.0 (5.0-9.0) Ur Specific [place] 1.015 (1.000-1.035) Urine Protein 30 A (NEG) mg/dL Urine Glucose (UA) Negative (NEG) mg/dL Urine Ketones Neg (NEG) mg/dL Urine Occult Blood 0.03 A (<0.03) mg/dL Urine Nitrate Pos A (NEG) Urine Bilirubin Neg (NEG) mg/dL Urine Urobilinogen Neg (NEG) mg/dL Ur Leukocyte Esterase 25 A (NEG) /uL Urine RBC 1 (0-1) /hpf Urine WBC 9 H (0-4) /hpf Ur Squamous Epith Cells 1 (0-4) /hpf Ur Transition Epith Cell < 1 (0-2) /hpf Urine Bacteria Few A (0) /hpf Urine Mucus Few (0) /hpf Ur Culture Indicated? Yes 08/24/17 Range/Units 17:35 WBC (4.5-11.0) K/mcL RBC (4.00-5.20) M/mcL Hgb (12.0-15.0) g/dL Hct (36.0-48.0) % MCV (80.0-100.0) fL MCH (26.0-34.0) pg MCHC (31.0-36.0) g/dL RDW (11.5-14.5) % Plt Count (140-440) K/mcL MPV (7.4-10.4) fL Band Neutrophils % VBG Lactic Acid 0.8 (0.5-2.2) mmol/L Sodium (133-145) mmol/L Potassium (3.3-5.1) mmol/L Chloride (96-108) mmol/L Carbon Dioxide (22-30) mmol/L Anion Gap (8-16) BUN (8-23) mg/dl Creatinine (0.6-1.1) mg/dl GFR Calculation Glucose (70-105) mg/dL Calcium (8.6-10.4) mg/dl Total Bilirubin (0.0-1.0) mg/dL AST (0-37) U/l ALT (0-40) U/l Alkaline Phosphatase (39-117) U/L Total Protein (5.9-8.4) gm/dL Albumin (3.2-5.2) gm/dL Globulin (2.2-3.7) gm/dL Albumin/Globulin Ratio (1.0-2.3) Urine Color Urine Appearance Urine pH (5.0-9.0) Ur Specific [place] (1.000-1.035) Urine Protein (NEG) mg/dL Urine Glucose (UA) (NEG) mg/dL Urine Ketones (NEG) mg/dL Urine Occult Blood (<0.03) mg/dL Urine Nitrate (NEG) Urine Bilirubin (NEG) mg/dL Urine Urobilinogen (NEG) mg/dL Ur Leukocyte Esterase (NEG) /uL Urine RBC (0-1) /hpf Urine WBC (0-4) /hpf Ur Squamous Epith Cells (0-4) /hpf Ur Transition Epith Cell (0-2) /hpf Urine Bacteria (0) /hpf Urine Mucus (0) /hpf Ur Culture Indicated? Disposition Pt seen by [facility]CHRO[facility] AIDE/PA only: No Clinical Impression: Complicated UTI (urinary tract infection) Disposition: Xfer As Outpt/Obs ([facility]) Condition: Fair Referrals: Seth Ramesh MD [Primary Care Provider] -
[2017-08-24] MEDS ORDERED: LEVOFLOXACIN 500 MG/100 ML BAG IV ONE (17:19)
--- NOTE | 2017-08-24 17:25 | XRay Report ---
CLINICAL INFORMATION: Cough and fever COMPARISON: 07/14/2017 FINDINGS: The heart size, mediastinum and pulmonary vessels are unremarkable. The lungs are clear. There are no effusions. The bones and soft tissues are within normal limits. IMPRESSION: Normal chest. Interpreted and Authenticated by: Ricardo Fisher 08/24/17
[2017-08-24 18:15] LABS: Mean Cell Volume 97.5 fL (80.0-100.0); Mean Corpuscular HGB Conc 33.2 g/dL (31.0-36.0); Mean Corpuscular Hemoglobin 32.4 pg (26.0-34.0); Platelet Count 163 K/mcL (140-440)
[2017-08-24 18:20] LABS: Appearance,Urine HAZY; Bacteria,Urine FEW /hpf (0); Bilirubin,Urine NEG (NEG); Color,Urine YELLOW; Glucose,Urine (UA) NEGATIVE (NEG); Leukocyte Esterase,Urine 25 /uL (NEG); Mucus,Urine FEW /hpf (0); Protein,Urine 30 mg/dL (NEG); Specific Gravity,Urine 1.015 (1.000-1.035); Urine Blood 0.03 mg/dL (<0.03); Urine RBC 1 /hpf (0-1); Urine Squamous Epithelial Cell 1 /hpf (0-4); Urine Transitional Epi Cells < 1 /hpf (0-2); Urine WBC 9 /hpf (0-4); Urobilinogen,Urine NEG (NEG)
[2017-08-24 18:36] LABS: ALT/SGPT 14 U/l (0-40); Albumin 3.2 gm/dL (3.2-5.2); Albumin/Globulin Ratio 1.2 (1.0-2.3); Alkaline Phosphatase 68 U/L (39-117); Blood Urea Nitrogen 11 mg/dl (8-23)
[2017-08-24 20:21] LABS: Anisocytosis 1+ (NONE SEEN); Band Neutrophils % 18 % (0-10); Eosinophils % (Manual) 5 % (0-7); Hypochromasia 1+ (NONE SEEN); Lymphocytes % 24 % (15-49); Monocytes % (Manual) 2 % (1-12); Platelet Estimate NORMAL (NORMAL); RBC Morphology ABNORM (NORMAL); Segmented Neutrophils % 46 % (38-78)
--- NOTE | 2017-08-24 20:34 | Internal Med History&Physical ---
Medical - H&P: HPI Patient information: Note initiated : 08/24/17 at 8:23 pm Patient: Sravanthi Ojeda a 72 y/o F with h/o CLL and recent CVA admitted on for UTI, no evidence of sepsis, delirium resolved. History of present illness: Ms. Ojeda is a 72 year old F with 20 year history of CLL (s/p chemo courses x2 ) who suffered a recent CVA (receiving PT in [place], workup in progress, including event monitor and cerebral angiogram), presented to the ED after unwitnessed fall out of bed. The primary source for the history is her until mid-way through the interview when she abruptly became lucid and talkative. At that point she was deemed to be quite a reliable historian as well. notes that patient has been sleeping more since her stroke in June. He notes she has had three episodes this week of urinary incontinence in bed. Up to then, there had been no incontinence. She also has been sitting on the toilet "for a long time" without seeming to produce much urine. No fevers, no chills. No vomiting, and appetite seems good. She chandrakant this morning at 6 AM, which is earlier than usual (usually 7:30), she took her medications, made breakfast which she ate without problem. had arranged for a friend to come over so that he could run to the store at about 10 AM. He was gone about an hour, and friend noted the patient had slept the entire time he was gone. later made lunch, which she ate, then she went to bed and was incontinent during that time frame. He got her up to the toilet, and in walking her there, he noticed she was quite weak. She would slump over, or tip to one side. He got her back to bed, later went to the other room to answer the phone, heard a crash, and she had fallen out of bed. He was unable to get her up and was concerned that if she had an injury, further attempts would create further injury. EMS was called and she presented to the ED for evaluation. In the ED, CBC was abnormal, but within her usual abnormal ranges. Chest Xray looked normal, and urine was highly suggestive of a UTI. Patient was given a dose of Levaquin and some IV fluids. Vital signs remained stable. Review of systems: 1) Previous history of insomnia prior to her CVA, now increased sleeping 2) Periods of intermittent confusion since she had the CVA in June 3) BM this afternoon 4) No history of VTE 5) Desires DNR status 6) Otherwise, on complete review all others are negative. Medical - H&P: [facility] Medical history: 1) CLL, diagnosed approximately 1996, chemotherapy in 2005 and again in approx 2015, details not known 2) CVA - 06/2017. PT in [place], evaluation including studies with oncologist (? SPEP, ? flow cytometry), event monitor (still in place), cerebral angiogram ( scheduled in [place] in the future), and [facility]AD[facility] 3) h/o disseminated herpes zoster 4) Hypertension 5) Hypothyroidism 6) Cardiac cath about 20 years ago; clean coronaries, no findings. 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 Medical - H&P: Meds Home Medications Medication Instructions Recorded Confirmed Type levothyroxine 75 mcg tablet 75 mcg PO QDAY #90 tab 02/07/17 08/24/17 Rx aspirin 81 mg tablet,delayed 81 mg PO QDAY 06/27/17 08/24/17 History release hydrocortisone 1 % topical cream 1 applic TOPICAL BID PRN g 07/28/17 08/24/17 History olopatadine 0.1 % eye drops 1 drp OPHTHALMIC BID 07/28/17 08/24/17 History ezetimibe 10 mg tablet 10 mg PO QDAY #90 tab 08/02/17 08/24/17 Rx ranitidine 150 mg tablet 150 mg PO BID #120 tab 08/18/17 08/24/17 Rx albuterol sulfate HFA 90 2 puff INHALATION Q6H PRN #8.5 g 08/23/17 08/24/17 Rx mcg/actuation aerosol inhaler azithromycin 250 mg tablet 250 mg PO QDAY #6 tab 08/23/17 08/24/17 Rx codeine 10 mg-guaifenesin 100 mg/5 7.5 ml PO Q6H PRN #120 ml 08/23/17 08/24/17 Rx mL oral liquid magnesium oxide 400 mg capsule 400 mg PO BID #180 cap 08/24/17 08/24/17 Rx Allergies Allergy/AdvReac Type Severity Reaction Status Date / Time atorvastatin [From Lipitor] Allergy Rash Verified 08/24/17 16:49 sumatriptan [From Imitrex] AdvReac Severe Other Verified 08/24/17 16:49 hydrocodone AdvReac Intermediate Nausea Verified 08/24/17 16:49 iodine AdvReac Unknown Hives Verified 08/24/17 16:49 IV CONTRAST Allergy Unknown NEEDS TO Uncoded 08/23/17 11:26 BE PREMEDICATED, HIVES Medical - H&P: Exam - Constitutional Vitals: Temp Pulse Resp BP Pulse Ox 98.0 F 87 22 148/99 95 08/24/17 18:10 08/24/17 17:39 08/24/17 17:01 08/24/17 17:39 08/24/17 17:39 Exam: GENERAL: Initially quiet and subdued when I entered the room. Was slightly confused regarding history, but much more alert than was initially described to me. Fifteen minutes into the visit, with her filling in history, she spoke up, and remained animated, alert, oriented for rest of visit. Speech coherent, fluent, articulate. Thought content appropriate. Respirations unlabored. HEENT: Atraumatic, normocephalic; EYES: pupils equal and reactive to light, full range of extraocular movements, no scleral icterus, no injected vessels. EARS: TM's pearly frances and translucent, EAC's without cerumen or trauma, left EAC slightly opaque, auricles without lesions. OROPHARYNX: [place] dentition with good oral hygiene. Palate raise symmetric. No posterior erythema. Membranes moist. NECK: Trachea midline, no adenopathy, no JVD, no bruits. LUNGS: Clear to bases bilaterally. COR: Regular rate and rhythm, no murmurs, rubs, gallops. Had event monitor around neck - this was removed as receiving apparatus at home. ABDOMEN: Non-distended, sparse bowel sounds, soft, subjective LLQ/suprapubic tenderness, otherwise non-tender. BACK: No vertebral tenderness, no CVA tenderness. EXTREMITIES: No edema, pulses x4, warm. No palpable cords, no nailbed cyanosis. SKIN: Multiple seborrheic keratoses on back. NEURO: Grossly non-focal; mild delirium noted when I first spoke with her resolved by end of visit. UA 7.0/1.015/30 protein/pos nitrate/25 leuk esterase/1RBC/9WBC/few bacteria On review of other labs (checking CVA evaluation) appears lumbar puncture done for immunoglobulin titers to various pathogens (inc HSV, VZV, cryptococcus/ coccidioides/mumps/[place] etc.). Medical - H&P: Reslt - Labs CBC & Chem 7: 08/24/17 17:35 08/24/17 17:35 Labs: Short CBC 08/24/17 Range/Units 17:35 WBC 3.2 L (4.5-11.0) K/mcL Hgb 8.4 L (12.0-15.0) g/dL Hct 25.4 L (36.0-48.0) % Plt Count 163 (140-440) K/mcL BMP 08/24/17 17:35 Sodium 133 Potassium 4.5 Chloride 95 L Carbon Dioxide 25 BUN 11 Creatinine 0.9 Glucose 120 H Calcium 8.5 L Liver Function 08/24/17 Range/Units 17:35 Total Bilirubin 0.3 (0.0-1.0) mg/dL AST 17 (0-37) U/l ALT 14 (0-40) U/l Alkaline Phosphatase 68 (39-117) U/L Albumin 3.2 (3.2-5.2) gm/dL Urine 08/24/17 Range/Units 17:11 Urine Color Yellow Urine Appearance Hazy Urine pH 7.0 (5.0-9.0) Ur Specific [place] 1.015 (1.000-1.035) Urine Protein 30 A (NEG) mg/dL Urine Glucose (UA) Negative (NEG) mg/dL Medical - H&P: A/P - Narrative A/P Narrative: 1) UTI - complicated by delirium, which has resolved, no other sign of sepsis. Has had symptoms for approximately last week. Received fluids and Levaquin in ED. Given complicated history and recent fall, will observe overnight for stability. Likely will discharge on oral Levaquin with outpatient followup on culture results. 2) h/o CLL - interesting family history. She is not currently on any medication , per family she is in process of reevaluation with oncologist. Some concern that there may have been transformation in disease which increased her stroke risk. Neurologist and oncologist sharing expertise in evaluation. Associated with suppressed white count and anemia at present. 3) Hypertension - by history, not currently on medications. No hypotension in ED , Systolic consistently in 140's 4) h/o recent CVA - on Zetia and aspirin. Evaluation to identify any other risk factors in progress. Continuing with PT in [place]. Will defer any PT evaluation here. 5) Fall - notes several falls since CVA. I feel today's episode is related to current UTI. Hydrate gently overnight, f/u with current physical therapists. 6) Hypothyroidism - stable for some time on current dose levothyroxine. Will continue. 7) DNR per her request. 8) Other problems to be addressed as they arise. Plan: Observation - anticipate she will discharge within two midnights Regular diet Start oral Levaquin tomorrow Continue usual outpatient medications. One liter NS at 100/hr Recheck labs in the morning. DNR SCD's for VTE prophylaxis as neurologist and oncologist are still evaluating anticoagulation risk/benefit Other problems to be addressed as they arise.
[2017-08-24] MEDS ORDERED: 0.9 % SODIUM CHLORIDE 1,000 ML IV SCH (20:54)
[2017-08-24] MEDS ORDERED: ALBUTEROL SULFATE 1 PUFF INHALER INH PRN (20:54)
[2017-08-24] MEDS ORDERED: ACETAMINOPHEN 325 MG TABLET PO PRN (20:54)
[2017-08-24] MEDS: OLOPATADINE 0.1% OU SCH (21:59)
[2017-08-24] MEDS: 0.9 % SODIUM CHLORIDE 10 ML SYRINGE IV SCH (23:04)
[2017-08-25] MEDS: 0.9 % SODIUM CHLORIDE 10 ML SYRINGE IV SCH (04:35)
--- NOTE | 2017-08-25 06:04 | Discharge Summary ---
Medical - DS: Prov Patient information: Note initiated : 08/25/17 at 5:58 am Service Date, if different from initiated Date: [] Patient: Sravanthi Ojeda 72 y/o F admitted on 08/24/17 for Confusion. Chief Complaint: [] Date of admission: 08/24/17 20:51 Discharge date: 08/25/17 Primary care physician: Seth Ramesh Admitting clinician: Marga Florian Attending physician on admission: Marga Florian Consults: 08/24/17 19:09 Consult to Physician [CONS] Stat Comment: Consulting Provider: Marga Florian Reason For Exam: Physician to Consult Attending physician on discharge: Marga Florian Discharging clinician: Marga Florian Medical - DS: Meds - Discharge Medications Prescriptions: Levofloxacin [Levaquin] 500 mg PO DAILY #7 tab Active and Home Medications: Home Medications levothyroxine 75 mcg tablet 75 mcg PO QDAY #90 tab 02/07/17 [Rx Confirmed Last Taken Unknown] aspirin 81 mg tablet,delayed release 81 mg PO QDAY 06/27/17 [History Confirmed 08/24/17 Last Taken Unknown] hydrocortisone 1 % topical cream 1 applic TOPICAL BID PRN g 07/28/17 [History Confirmed 08/24/17 Last Taken Unknown] olopatadine 0.1 % eye drops 1 drp OPHTHALMIC BID 07/28/17 [History Confirmed Last Taken Unknown] ezetimibe 10 mg tablet 10 mg PO QDAY #90 tab 08/02/17 [Rx Confirmed 08/24/17 Last Taken Unknown] ranitidine 150 mg tablet 150 mg PO BID #120 tab 08/18/17 [Rx Confirmed 08/24/17 Last Taken Unknown] albuterol sulfate HFA 90 mcg/actuation aerosol inhaler 2 puff INHALATION Q6H PRN #8.5 g 08/23/17 [Rx Confirmed 08/24/17 Last Taken Unknown] codeine 10 mg-guaifenesin 100 mg/5 mL oral liquid 7.5 ml PO Q6H PRN #120 ml [Rx Confirmed 08/24/17 Last Taken Unknown] magnesium oxide 400 mg capsule 400 mg PO BID #180 cap 08/24/17 [Rx Confirmed Last Taken Unknown] Levofloxacin [Levaquin] 500 mg PO DAILY #7 tab 08/25/17 [Rx Last Taken Unknown] Medical - DS: Hosp Hospital course: Mrs. Ojeda is a 72 year old F admitted with confusion which cleared in ED, new UTI with no sign sepsis, contributing diagnoses of CLL and recent CVA. Given Levaquin and fluids in ED, significantly cleared at time of admission. Please see admission note of 08/24/17 for further details. Overnight, she remained afebrile, vital signs were unremarkable. Fluids were continued at 100 per hour for a second liter. No complaints noted. No recurrent delirium. WBC morning of discharge was 2.9, not significantly changed from night before. She did have hypocalcemia noted, ionized calcium checked and was only minimally low. [place] safe to discharge. Suspect some of the drop was related IV fluids. Urine culture results were still pending; it was felt oral Levaquin was reasonable choice for continued empiric therapy pending C&S results. Discharge diagnosis: Urinary tract infection Secondary discharge diagnosis: Transient delirium associated with UTI Recent CVA, etiology unclear, evaluation has been continuing as outpatient CLL - Time Spent with Patient Total time spent providing and/or coordinating discharge services: Less than 30 minutes Medical - DS: Exam - Constitutional Vitals: Vital Signs Temp Pulse Pulse Resp BP BP Pulse Ox 08/25/17 04:00 98.4 F 77 18 150/69 96 08/24/17 23:27 98.6 F 80 16 125/61 97 08/24/17 21:00 98.2 F 85 18 140/58 97 08/24/17 20:52 98.0 F 87 22 148/99 95 08/24/17 18:10 98.0 F 08/24/17 17:39 87 148/99 95 08/24/17 17:32 84 148/99 97 08/24/17 17:16 91 H 146/112 95 08/24/17 17:01 22 135/111 08/24/17 16:49 101.9 F H 97 H 16 162/76 97 Intake and Output 08/24/17 08/24/17 08/25/17 13:59 21:59 05:59 Intake Total 1100 / 1100 150 / 150 Output Total 900 / 900 Balance 1100 / 1100 -750 / -750 Intake: IV 1100 / 1100 Sodium Chloride 0.9% 1,000 ml @ 1000 / 1000 Wide Open IV BOLUS ONE Rx#: [id number] LEVAQUIN 500 mg In 100 ml @ 100 100 / 100 mls/hr IV ONCE ONE Rx#: [id number] Oral 150 / 150 Output: Void Amount 900 / 900 Other: # Voids 1 Weight 124 lb Patient Weight 08/25/17 05:59 Weight 124 lb Additional comments: GENERAL: Awake, alert. Has been up to bathroom without difficulty or instability. Good eye contact, recalls our conversation from last night. Respirations unlabored, thought content appropriate. LUNGS: Clear to bases bilaterally. COR: Regular rate and rhythm, no murmurs, rubs, gallops. ABDOMEN: Non-distended, sparse bowel sounds, soft, LLQ / suprapubic tenderness essentially resolved. BACK: No vertebral tenderness, no CVA tenderness. EXTREMITIES: No edema, pulses x4, warm. No palpable cords, no nailbed cyanosis. Medical - DS: Data Labs on day of discharge: Labs from last 24 hours 08/25/17 08/25/17 08/24/17 03:55 03:55 17:35 WBC Pending RBC Pending Hgb Pending Hct Pending MCV Pending MCH Pending MCHC Pending RDW Pending Plt Count Pending MPV Pending Total Counted Pending Seg Neutrophils % Band Neutrophils % Pending Lymphocytes % Monocytes % (Manual) Eosinophils % (Manual) Reactive Lymphocytes Platelet Estimate Pending RBC Morphology Pending Hypochromasia Anisocytosis VBG Lactic Acid 0.8 Sodium Pending Potassium Pending Chloride Pending Carbon Dioxide Pending Anion Gap Pending BUN Pending Creatinine Pending GFR Calculation Pending Glucose Pending Calcium Pending Total Bilirubin AST ALT Alkaline Phosphatase Total Protein Albumin Globulin Albumin/Globulin Ratio Urine Color Urine Appearance Urine pH Ur Specific [place] Urine Protein Urine Glucose (UA) Urine Ketones Urine Occult Blood Urine Nitrate Urine Bilirubin Urine Urobilinogen Ur Leukocyte Esterase Urine RBC Urine WBC Ur Squamous Epith Cells Ur Transition Epith Cell Urine Bacteria Urine Mucus Ur Culture Indicated? 08/24/17 08/24/17 08/24/17 17:35 17:35 17:11 WBC 3.2 L RBC 2.60 L Hgb 8.4 L Hct 25.4 L MCV 97.5 MCH 32.4 MCHC 33.2 RDW 17.0 H Plt Count 163 MPV 8.7 Total Counted 100 Seg Neutrophils % 46 Band Neutrophils % 18 H Lymphocytes % 24 Monocytes % (Manual) 2 Eosinophils % (Manual) 5 Reactive Lymphocytes 5 H Platelet Estimate Normal RBC Morphology Abnorm A Hypochromasia 1+ A Anisocytosis 1+ A VBG Lactic Acid Sodium 133 Potassium 4.5 Chloride 95 L Carbon Dioxide 25 Anion Gap 13.0 BUN 11 Creatinine 0.9 GFR Calculation 63 Glucose 120 H Calcium 8.5 L Total Bilirubin 0.3 AST 17 ALT 14 Alkaline Phosphatase 68 Total Protein 5.9 Albumin 3.2 Globulin 2.7 Albumin/Globulin Ratio 1.2 Urine Color Yellow Urine Appearance Hazy Urine pH 7.0 Ur Specific [place] 1.015 Urine Protein 30 A Urine Glucose (UA) Negative Urine Ketones Neg Urine Occult Blood 0.03 A Urine Nitrate Pos A Urine Bilirubin Neg Urine Urobilinogen Neg Ur Leukocyte Esterase 25 A Urine RBC 1 Urine WBC 9 H Ur Squamous Epith Cells 1 Ur Transition Epith Cell < 1 Urine Bacteria Few A Urine Mucus Few Ur Culture Indicated? Yes Medical - DS: A/P - Patient/Caregiver Discharge Instructions Activity: as per physical therapy Diet: Regular Diet Additional Instructions: 1) The final result on the urine culture is still pending. Your primary provider will need to follow this up for you. This does not need to be done in person, could be accomplished by phone. Call their office on Monday. 2) Keep all appointments: your charcoal unloader and neurologist for your stroke workup, your oncologist for your CLL. 3) Call primary provider or return to the emergency department if increasing urinary symptoms, new fevers, new chills. Prescriptions: Levofloxacin [Levaquin] 500 mg PO DAILY #7 tab - Follow up Plan Follow up with: Seth Ramesh MD [Primary Care Provider] - 09/08/17 Disposition: Home, Self-Care Prognosis: Good Rehab Potential: Good I certify that the patient requires SNF services: No Overall status at discharge: patient is progressing back to baseline Medical - DS: Qual - VTE Deep Vein Thrombosis/Pulmonary Embolism Present on Admission: No
[2017-08-25 06:54] LABS: Mean Corpuscular HGB Conc 33.8 g/dL (31.0-36.0); Mean Corpuscular Hemoglobin 32.8 pg (26.0-34.0); Platelet Count 171 K/mcL (140-440)
[2017-08-25 07:09] LABS: Blood Urea Nitrogen 10 mg/dl (8-23)
[2017-08-25] MEDS ORDERED: LEVOTHYROXINE 50 MCG TABLET PO SCH (07:30)
[2017-08-25] MEDS ORDERED: LEVOFLOXACIN 500 MG TABLET PO SCH (09:00)
[2017-08-25] MEDS ORDERED: ASPIRIN 81 MG TAB.CHEW PO SCH (09:00)
[2017-08-25] MEDS ORDERED: FAMOTIDINE 20 MG TABLET PO SCH (09:00)
[2017-08-25] MEDS ORDERED: MAGNESIUM OXIDE 400 MG TABLET PO SCH (09:00)
[2017-08-25] MEDS ORDERED: EZETIMIBE 10 MG TABLET PO SCH (09:00)
[2017-08-25] MEDS: OLOPATADINE 0.1% OU SCH (09:10)
[2017-08-25 09:49] LABS: Anisocytosis 1+ (NONE SEEN); Band Neutrophils % 24 % (0-10); Eosinophils % (Manual) 6 % (0-7); Hypochromasia 1+ (NONE SEEN); Lymphocytes % 26 % (15-49); Platelet Estimate NORMAL (NORMAL); RBC Morphology ABNORM (NORMAL); Segmented Neutrophils % 43 % (38-78); Toxic Granulation 1+ (NONE SEEN)
[2017-08-25 10:11] LABS: Ionized Calcium 1.07 mmol/L (1.16-1.32)
== END 2017-08-25 11:50 | disposition home or self-care (01) ==
LOC: ED 16:49 → ICU 16:49
PROVIDERS: ADMIT Family Medicine; ATTEND Family Medicine

== ENCOUNTER 2017-10-20 09:44 | Inpatient (IN) ==
[2017-10-20] MEDS ORDERED: 0.9 % SODIUM CHLORIDE 1,000 ML IV ONE (10:06)
--- NOTE | 2017-10-20 10:46 | Cat Scan Report ---
CLINICAL INFORMATION: Altered mental status - history of stroke COMPARISON: None. TECHNIQUE: 2.5 mm helical slices were obtained in the skull base to vertex. Following reconstruction, axial reformatted images were reviewed at bone and parenchymal windows. The exam was performed using radiation dose optimization techniques including, but not limited to, automated exposure control, adjustment of the mA and/or kV according to patient size and use of iterative reconstruction technique. FINDINGS: The ventricles, sulci, fissures, and cisterns are enlarged bowel with mild age-related atrophy - no extra-axial fluid collection or mass appreciated. Patchy chronic ischemic changes in the deep cerebral white matter and small remote infarcts in the anterior bifrontal and left posterior frontal deep white matter are identical to the prior CT. There is no cortical based infarct. No acute finding - no intracerebral hemorrhage, mass effect or edema. Bone windows show no osseous abnormality IMPRESSION: Mild atrophy and chronic ischemic changes in the deep cerebral white matter with remote deep white matter infarcts in the anterior bifrontal and posterior left frontal deep periventricular white matter identical to previous CT two months ago. There is no hemorrhage or other acute finding. Small air-fluid level left maxillary sinus compatible with mild acute sinusitis. Interpreted and Authenticated by: Ricardo Fisher 10/20/17
--- NOTE | 2017-10-20 10:47 | XRay Report ---
CLINICAL INFORMATION: Altered mental status COMPARISON: 08/24/2017 FINDINGS: The heart size, mediastinum and pulmonary vessels are unremarkable. Mild left basilar atelectasis noted There are no effusions. The bones and soft tissues are within normal limits. IMPRESSION: No significant abnormality. Interpreted and Authenticated by: Ricardo Fisher 10/20/17
--- NOTE | 2017-10-20 10:49 | XRay Report ---
CLINICAL INFORMATION: Abdominal pain and distention. Constipation COMPARISON: Abdomen and pelvic CT - 03/16/2015 FINDINGS: Moderate stool present within the right and transverse: A segment. The colon, small bowel and stomach are normal caliber. No free air, soft tissue mass or organomegaly. A 1 cm calcification in the central pelvis represents a known calcified fibroid on an old CT. IMPRESSION: No acute disease - moderate stool in the right and transverse colon. Interpreted and Authenticated by: Ricardo Fisher 10/20/17
[2017-10-20 10:58] LABS: Basophils # (Auto) 0 K/mcL (0.0-0.3); Basophils % (Auto) 0 % (0.0-2.0); Eosinophils # (Auto) 0 K/mcL (0.0-0.7); Eosinophils % (Auto) 0.9 % (0.0-7.0); Granulocytes % (Auto) 72.9 % (38.0-78.0); Lymphocytes # (Auto) 0.7 K/mcL (1.5-4.8); Lymphocytes % (Auto) 26.1 % (15.5-49.0); Mean Cell Volume 95.6 fL (80.0-100.0); Mean Corpuscular HGB Conc 32.7 g/dL (31.0-36.0); Mean Corpuscular Hemoglobin 31.3 pg (26.0-34.0); Monocytes # (Auto) 0 K/mcL (0.1-0.9); Monocytes % (Auto) 0.1 % (1.0-12.0); Platelet Count 177 K/mcL (140-440); RBC 2.93 M/mcL (4.00-5.20); Red Cell Distribution Width 20.9 % (11.5-14.5)
[2017-10-20 11:14] LABS: Appearance,Urine CLEAR; Bilirubin,Urine NEG (NEG); Color,Urine YELLOW; Glucose,Urine (UA) NEGATIVE (NEG); Leukocyte Esterase,Urine NEG /uL (NEG); Protein,Urine NEG (NEG); Specific Gravity,Urine 1.014 (1.000-1.035); Urine Blood NEG mg/dL (<0.03); Urobilinogen,Urine NEG (NEG)
[2017-10-20 11:15] LABS: ALT/SGPT 17 U/l (0-40); Albumin 4.1 gm/dL (3.2-5.2); Albumin/Globulin Ratio 1.9 (1.0-2.3); Alkaline Phosphatase 85 U/L (39-117); Amylase 41 U/L (28-100); Blood Urea Nitrogen 34 mg/dl (8-23); C-Reactive Protein 1.7 mg/dl (0.0-0.8)
[2017-10-20 11:47] LABS: Erythrocyte Sedimentation Rate 52 mm/hr (0-20)
[2017-10-20] MEDS ORDERED: DEXTROSE 5%-LR W/20MEQ KCL 1,000 ML IV SCH (12:00)
[2017-10-20] MEDS ORDERED: LORazepam 2 MG/ML VIAL IV ONE ×2 (12:51→13:03)
--- NOTE | 2017-10-20 13:03 | Emergency Department Note ---
General Adult HPI - General Chief complaint: Altered Mental Status Stated complaint: Decreased loc Time Seen by Provider: 10/20/17 09:45 Source: EMS Mode of arrival: EMS Limitations: altered mental status - History of Present Illness HPI Narrative: The patient is a 72-year-old female who presents today via [facility] for altered mental status. She has a history of 2 recent ischemic strokes, last in July. Her states that she did not have any TPA medications given for these strokes. She completed and was discharged from [facility] for rehabilitation. Her house and reports this was a second stroke that she had, she's had a rapid neurologic decline with increased weakness and decreased verbal skills. They have home care coming in to assist him and caring for her. He tells me that for the past several days she has been increasingly agitated and weak. He feels like she hasn't had regular good bowel movements for several days. This morning she was slumped over in her chair and he reports "almost unresponsive." He was scared and called for the ambulance. Her provided most of the history but then when her granddaughters came in the room, one of whom is a nurse, she stated some differing histories stating that the patient has been nonverbal for the past week and this is a new change. She also reports that for the past 4 days she has not been moving her right side much at all. Also states that this is entirely new and has not been going on since last stroke as the previously said was the case. - Related Data Home Medications Medication Instructions Recorded Confirmed aspirin 81 mg tablet,delayed 81 mg PO QDAY 06/27/17 10/20/17 release Levofloxacin [Levaquin] 500 mg PO DAILY 10/20/17 10/20/17 Previous Rx's Medication Instructions Recorded ezetimibe 10 mg tablet 10 mg PO QDAY #90 tab 08/02/17 ranitidine 150 mg tablet 150 mg PO BID #120 tab 08/18/17 albuterol sulfate HFA 90 2 puff INHALATION Q6H PRN #8.5 g 08/23/17 mcg/actuation aerosol inhaler magnesium oxide 400 mg capsule 400 mg PO BID #180 cap 08/24/17 levothyroxine 75 mcg tablet 75 mcg PO QDAY #90 tab 09/28/17 Allergies Allergy/AdvReac Type Severity Reaction Status Date / Time atorvastatin [From Lipitor] Allergy Mild Rash Verified 10/20/17 09:45 sumatriptan [From Imitrex] AdvReac Intermediate Other Verified 10/20/17 09:45 hydrocodone AdvReac Mild Nausea Verified 10/20/17 09:45 iodine AdvReac Mild Hives Verified 10/20/17 09:45 IV CONTRAST Allergy Mild NEEDS TO Uncoded 10/12/17 10:46 BE PREMEDICATED, HIVES Review of Systems All systems ED: reviewed and negative except as stated. Past Medical History - Past Medical History Source: obtained from family Medical history: Reports: cancer (CLL in remission), CVA, hyperlipidemia, hypertension, migraine, thyroid disease, other (Menopause on hormone therapy, CLL) Psychiatric history: Reports: no psych history [employer]PRESENT[employer]IVE history: Reports: bilateral tubal ligation, other (DNC) Surgical history ED: Reports: non-contributory - Social History smoking status: Never smoker Alcohol use: Reports: None Drug use: Reports: none Physical Exam Limitations: altered mental status General appearance: other (awake but not speaking, will shake her head up or down) Head: atraumatic, normocephalic Eye: Present: PERRL, EOMI. Absent: nystagmus ENT: mucous membranes dry Neck: Present: normal inspection Respiratory: Present: normal lung sounds bilaterally Cardiovascular: Present: regular rate, normal rhythm Abdominal: Present: soft, normal bowel sounds. Absent: distention, tenderness, guarding, rebound, rigidity Extremities: Present: other (moving her left side on command, won't move her right side on command initially but on repeat exam does) Back: Present: normal inspection Neurological: Present: alert, other (non verbal, will stick her tongue out on command, lifts her left hand up on command). Absent: oriented X3 Psychiatric: Present: other (unable to assess) Skin: Present: warm, dry Course Course Narrative: Patient with a history of 2 recent ischemic strokes with now rapid neurologic decline over several months, they've been more acutely in the past week. She has been having decreased oral intake and been more nonresponsive. Blood work obtained, imaging ordered - Reevaluation(s) Reevaluation #1: Imaging returned showing CT of head with prior ischemic stroke changes seen, nothing new observed. Chest x-ray negative for pneumonia, abdominal x-ray showing moderate stool. Reevaluation #2: Lab work returned showing a sodium of 154, potassium of 3.2, CRP of 1.7. Her urinalysis was negative. With this hyperkalemia her normal saline was switched to D5 W with a potassium rider. MRI head ordered due to history of ischemic changes only seen on MRI after negative CT scan. Vital Signs Temperature 98.6 F 10/20/17 09:45 Pulse Rate 90 10/20/17 09:45 Respiratory Rate 20 10/20/17 09:45 Blood Pressure 146/72 10/20/17 09:45 Pulse Oximetry (%) 95 10/20/17 09:45 Temperature 98.6 F 10/20/17 14:22 Pulse Rate 88 10/20/17 14:22 Respiratory Rate 17 10/20/17 14:22 Blood Pressure 174/58 10/20/17 14:22 Pulse Oximetry (%) 93 10/20/17 14:22 Medical Decision Making - [facility] Narrative Medical decision making narrative: Patient to be admitted for hyponatremia workup and treatment. Brain MRI still pending at time of transfer to inpatient service. - Lab Data Lab results reviewed: Yes I reviewed the patient's lab results. Result diagrams: 10/20/17 10:07 10/20/17 10:07 Lab Results 10/20/17 10/20/17 10/20/17 Range/Units 10:07 10:07 10:48 WBC 2.7 L (4.5-11.0) K/mcL RBC 2.93 L (4.00-5.20) M/mcL Hgb 9.1 L (12.0-15.0) g/dL Hct 28.0 L (36.0-48.0) % MCV 95.6 (80.0-100.0) fL MCH 31.3 (26.0-34.0) pg MCHC 32.7 (31.0-36.0) g/dL RDW 20.9 H (11.5-14.5) % Plt Count 177 (140-440) K/mcL MPV 8.4 (7.4-10.4) fL Gran % 72.9 (38.0-78.0) % Lymph % (Auto) 26.1 (15.5-49.0) % Thomas % (Auto) 0.1 L (1.0-12.0) % Eos % (Auto) 0.9 (0.0-7.0) % Baso % (Auto) 0 (0.0-2.0) % Gran # 2.0 (1.8-8.0) K/mcL Lymph # (Auto) 0.7 L (1.5-4.8) K/mcL Thomas # (Auto) 0 L (0.1-0.9) K/mcL Eos # (Auto) 0 (0.0-0.7) K/mcL Baso # (Auto) 0 (0.0-0.3) K/mcL Differential Comment (()) ESR 52 H (0-20) mm/hr Sodium 154 H (133-145) mmol/L Potassium 3.2 L (3.3-5.1) mmol/L Chloride 106 (96-108) mmol/L Carbon Dioxide 36 H (22-30) mmol/L Anion Gap 12.0 (8-16) BUN 34 H (8-23) mg/dl Creatinine 1.4 H (0.6-1.1) mg/dl GFR Calculation 37 Glucose 144 H (70-105) mg/dL Calcium 12.5 H (8.6-10.4) mg/dl Total Bilirubin 0.4 (0.0-1.0) mg/dL AST 23 (0-37) U/l ALT 17 (0-40) U/l Alkaline Phosphatase 85 (39-117) U/L C-Reactive Protein 1.7 H (0.0-0.8) mg/dl Total Protein 6.3 (5.9-8.4) gm/dL Albumin 4.1 (3.2-5.2) gm/dL Globulin 2.2 (2.2-3.7) gm/dL Albumin/Globulin Ratio 1.9 (1.0-2.3) Amylase 41 (28-100) U/L Urine Color Yellow Urine Appearance Clear Urine pH 6.0 (5.0-9.0) Ur Specific [place] 1.014 (1.000-1.035) Urine Protein Neg (NEG) mg/dL Urine Glucose (UA) Negative (NEG) mg/dL Urine Ketones Neg (NEG) mg/dL Urine Occult Blood Neg (<0.03) mg/dL Urine Nitrate Neg (NEG) Urine Bilirubin Neg (NEG) mg/dL Urine Urobilinogen Neg (NEG) mg/dL Ur Leukocyte Esterase Neg (NEG) /uL Ur Culture Indicated? No - Radiology Data Radiology results reviewed: Yes I reviewed the patient's radiology results. Disposition Pt seen by [employer] only: No Clinical Impression: Hypernatremia, Altered mental status Disposition: Xfer As Inpt ([facility]) Condition: Fair
[2017-10-20] MEDS ORDERED: LABETALOL 5 MG/ML ML IV ONE (13:45)
[2017-10-20] MEDS ORDERED: IPRATROPIUM/ALBUTEROL 3 ML AMPUL.NEB NEB PRN (14:32)
[2017-10-20] MEDS ORDERED: oxyCODONE/APAP 5/325MG TABLET PO PRN (14:32)
[2017-10-20] MEDS ORDERED: ACETAMINOPHEN 325 MG TABLET PO PRN (14:32)
[2017-10-20] MEDS ORDERED: POTASSIUM CHLORIDE 40 MEQ in DEXTROSE 5% IN WATER 500 ML IV ONE (14:32)
[2017-10-20] MEDS ORDERED: NALOXONE HCL 0.4 MG/ML VIAL IV PRN (14:32)
[2017-10-20] MEDS ORDERED: ONDANSETRON 4 MG/2 ML VIAL IV PRN (14:32)
--- NOTE | 2017-10-20 15:29 | Magnetic Resonance Report ---
CLINICAL INFORMATION: History of CVA - dysarthria COMPARISON: MRI nearly 3 months prior 08/01/2017 TECHNIQUE:Sagittal T1 FLAIR, axial T1 FLAIR, T2 FLAIR propeller, T2 propeller, gradient, diffusion, ADC and coronal T2 weighted images were acquired. FINDINGS: The ventricles, sulci, fissures and cisterns are symmetrically enlarged bowel with atrophy - no extra-axial fluid collections or masses appreciated. There are multiple chronic lacunar infarcts in the deep periventricular white matter - the parietal and frontal regions. On the previous study, three months ago, these were small acute nonhemorrhagic lacunar infarcts, but now have evolved into a chronic appearance. It does appear to be, however, at least 2-3 days which are acute. Signal void in intracerebral arteries, extra-axial cranial nerves pituitary and orbits are normal no acute cerebral hemorrhage. IMPRESSION: Multiple small chronic lacunar infarcts in the deep cerebral white matter - predominantly the frontal parietal region. These represent evolution from acute lacunar infarcts seen on the brain MRI less than three months ago. There does appear to be at least 2-3 of these which are acute on today's examination. There is no evidence of hemorrhage. Please consider emboli from the heart or ascending thoracic aortic arch source. Also consider hypercoagulability syndromes Interpreted and Authenticated by: Ricardo Fisher 10/20/17
[2017-10-20] MEDS: LACTATED RINGERS 1,000 ML IV SCH (15:59)
--- NOTE | 2017-10-20 16:38 | Internal Med History&Physical ---
Medical - H&P: HPI Patient information: Note initiated : 10/20/17 at 4:36 pm Service Date, if different from initiated Date: [] Patient: Sravanthi Ojeda a 72 y/o F admitted on 10/20/17 for Decreased loc. Chief Complaint: [] History of present illness: Ms. Ojeda is a 72 year old F with h/o recurrent CVA, shower emobli? 3 months ago, was at [facility], h/o CLL in remission, presents to the hospital with complaints of weakness nearly since the time of discharge from [facility]. She has been having poor oral intake. Over the last 1 week the family also has noticed significantly decreased oral intake, weakness on the right side? and decreased mentation, increased forgetfulness and decreased recogniation of family members. her condition worsened overnight when this AM she was found to be slumped in her chair and almost unresponsive and hence brought to the hospital The patient was non verbal on my exam, it seems did nod her head to yes and no questions in the ER. (sedated for MRI) In the ER the patient was afebrile, VSS hb 9.1 chr, WBC 2.7 low (since july) Plat 177 Na 154, K 3.2, cl 106, bicatb 36, creat 1.7 baseline 0.7, glucose 144 esr 52, ua neg cxr neg CT head neg for acute issues, sinusitis noted. MRI head shows lacunar infarcts, 2-3 new. patient was admitted to the hospital for further management. family by bedside providing most history, Dr Juan is the oncologist managing her CLL< I spoke with him he noted that pt does not have active disease, thrombotic workup is neg, anticoagulation would nto be useful, but he plans to call me back I reveiwed CTA done recently which shows atherosclerotic disease, no vasculitis. Echo done as per family recently was neg. MADIHA was not advised by cardiology. 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) Anemia (Chronic) Claustrophobia (Chronic) Chronic lymphoid leukemia in remission (Acute) Hypothyroidism (acquired) (Chronic) Hyperlipidemia (Chronic) Allergic rhinitis (Acute) Surgical history: Past Surgical History History of cholecystectomy (Chronic) History of bone marrow biopsy (Chronic 03/11/15) History of dilation and curettage (Acute) Status post tubal ligation (Acute) Status post rotator cuff repair (Chronic) No pertinent past surgical history (Acute) History of colonoscopy (Chronic 06/29/10) Family history: reviewed and not pertinent Medical - H&P: Meds Home Medications Medication Instructions Recorded Confirmed Type aspirin 81 mg tablet,delayed 81 mg PO QDAY 06/27/17 10/20/17 History release ezetimibe 10 mg tablet 10 mg PO QDAY #90 tab 08/02/17 10/20/17 Rx ranitidine 150 mg tablet 150 mg PO BID #120 tab 08/18/17 10/20/17 Rx albuterol sulfate HFA 90 2 puff INHALATION Q6H PRN #8.5 g 08/23/17 10/20/17 Rx mcg/actuation aerosol inhaler magnesium oxide 400 mg capsule 400 mg PO BID #180 cap 08/24/17 10/20/17 Rx levothyroxine 75 mcg tablet 75 mcg PO QDAY #90 tab 09/28/17 10/20/17 Rx Levofloxacin [Levaquin] 500 mg PO DAILY 10/20/17 10/20/17 History Allergies Allergy/AdvReac Type Severity Reaction Status Date / Time atorvastatin [From Lipitor] Allergy Mild Rash Verified 10/20/17 09:45 sumatriptan [From Imitrex] AdvReac Intermediate Other Verified 10/20/17 09:45 hydrocodone AdvReac Mild Nausea Verified 10/20/17 09:45 iodine AdvReac Mild Hives Verified 10/20/17 09:45 IV CONTRAST Allergy Mild NEEDS TO Uncoded 10/12/17 10:46 BE PREMEDICATED, HIVES Medical - H&P: Exam - Constitutional Vitals: Temp Pulse Resp BP Pulse Ox 98.9 F 88 14 164/71 91 10/20/17 14:32 10/20/17 14:22 10/20/17 14:32 10/20/17 14:32 10/20/17 14:32 Exam: GENERAL: The patient is a well-developed, well-nourished in no apparent distress. Is drowsy and oriented x0 . VITAL SIGNS: Reviewed and as noted elsewhere. HEENT: Head is normocephalic and atraumatic. Extraocular muscles are intact. Pupils are equal, round, and reactive to light. Nares appeared normal. Mouth appears any without lesions. Mucous membranes are dry NECK: Normal to inspection, Supple, No lymphadenopathy or thyromegaly. LUNGS: Air entry equal on both sides, no wheezing, crackles or rhonchi noted. No accessory muscles of respiration, ant exam HEART: Regular rate and rhythm normal, S1 and S2 heard, no Gallop, S3 or Rub Noted, No Gross murmur heard. ABDOMEN: Soft, nontender, and nondistended. Positive bowel sounds. No hepatosplenomegaly was noted. EXTREMITIES: No cyanosis, clubbing, rash, lesions or edema. NEUROLOGIC: wakes up to verbal stimuli, face appears symmetircial, pupils reactive to light, unable to do comphrensive neuro exam PSYCHIATRIC: drowsy not agitated SKIN: No ulceration or wounds noted, No jaundice, No rash noted. Medical - H&P: Reslt - Labs CBC & Chem 7: 10/20/17 10:07 10/20/17 10:07 Labs: Short CBC 10/20/17 Range/Units 10:07 WBC 2.7 L (4.5-11.0) K/mcL Hgb 9.1 L (12.0-15.0) g/dL Hct 28.0 L (36.0-48.0) % Plt Count 177 (140-440) K/mcL BMP 10/20/17 10:07 Sodium 154 H Potassium 3.2 L Chloride 106 Carbon Dioxide 36 H BUN 34 H Creatinine 1.4 H Glucose 144 H Calcium 12.5 H Liver Function 10/20/17 Range/Units 10:07 Total Bilirubin 0.4 (0.0-1.0) mg/dL AST 23 (0-37) U/l ALT 17 (0-40) U/l Alkaline Phosphatase 85 (39-117) U/L Albumin 4.1 (3.2-5.2) gm/dL Urine 10/20/17 Range/Units 10:48 Urine Color Yellow Urine Appearance Clear Urine pH 6.0 (5.0-9.0) Ur Specific Celestine 1.014 (1.000-1.035) Urine Protein Neg (NEG) mg/dL Urine Glucose (UA) Negative (NEG) mg/dL Medical - H&P: A/P - Narrative A/P Narrative: A/P Altered Mental status/ Metabolic vs ischemic encephalopathy Hypernatremia Neutropenia h/o CLL in remision h/o Shower embolus Hypokalemia Metabolic Alkalosis Hypercalcemia Acute Kidney Injury Acute lacunar infarct failure to thrive Plan admit to tele IV fluids for hydration check viscosity, check tsh change asa to plavix as per dr Juan start on statin had rash to lipitor it seems given recurrent cva, pt will benefit from statin trend labs Dr Juan to call back after reviewing recent thrombotic workup OT/PT/ST eval family aware of overall poor prognosis given poor oral intake and recurrent cva DVT hep sq Diet dysphagia diet ST eval ordered DNR code status. Social History - Social History marital status: - Tobacco smoking status: Never smoker - Alcohol alcohol intake frequency: holiday/special occasion only - Substance use substance use type: does not use
[2017-10-20] MEDS ORDERED: CLOPIDOGREL 75 MG TABLET PO ONE (16:45)
[2017-10-20 17:41] LABS: Blood Urea Nitrogen 33 mg/dl (8-23)
[2017-10-20] MEDS ORDERED: LABETALOL 5 MG/ML ML IV PRN (19:08)
[2017-10-20] MEDS: LEVOFLOXACIN 250 MG/50 ML BAG IV SCH (20:48)
[2017-10-20] MEDS ORDERED: DIPYRIDAMOLE PO SCH (21:00)
[2017-10-20] MEDS ORDERED: ASPIRIN PO SCH (21:00)
[2017-10-20] MEDS: HEPARIN 5,000 UNIT/ML VIAL SQ SCH (22:41)
[2017-10-20] MEDS: 0.9 % SODIUM CHLORIDE 10 ML SYRINGE IV SCH (22:43)
[2017-10-20] MEDS: MAGNESIUM OXIDE 400 MG TABLET PO SCH (22:43)
[2017-10-20] MEDS: SIMVASTATIN 20 MG TABLET PO SCH (22:43)
[2017-10-20] MEDS: FAMOTIDINE 20 MG TABLET PO SCH (22:43)
[2017-10-21 05:47] LABS: Basophils # (Auto) 0 K/mcL (0.0-0.3); Basophils % (Auto) 0 % (0.0-2.0); Eosinophils # (Auto) 0.1 K/mcL (0.0-0.7); Eosinophils % (Auto) 3.1 % (0.0-7.0); Granulocytes % (Auto) 66.2 % (38.0-78.0); Lymphocytes # (Auto) 0.8 K/mcL (1.5-4.8); Lymphocytes % (Auto) 30.2 % (15.5-49.0); Mean Cell Volume 96.4 fL (80.0-100.0); Mean Corpuscular HGB Conc 31.9 g/dL (31.0-36.0); Mean Corpuscular Hemoglobin 30.8 pg (26.0-34.0); Monocytes # (Auto) 0 K/mcL (0.1-0.9); Monocytes % (Auto) 0.5 % (1.0-12.0); Platelet Count 148 K/mcL (140-440); RBC 2.51 M/mcL (4.00-5.20); Red Cell Distribution Width 21.3 % (11.5-14.5)
[2017-10-21] MEDS: 0.9 % SODIUM CHLORIDE 10 ML SYRINGE IV SCH ×3 (05:50→20:40)
[2017-10-21 07:19] LABS: ALT/SGPT 14 U/l (0-40); Albumin 3.5 gm/dL (3.2-5.2); Albumin/Globulin Ratio 1.9 (1.0-2.3); Alkaline Phosphatase 73 U/L (39-117); Bilirubin,Direct < 0.2 mg/dL (0.0-0.3); Blood Urea Nitrogen 28 mg/dl (8-23); Gamma Glutamyl Transpeptidase 17 U/L (5-36); Uric Acid 7.9 mg/dL (2.5-8.0)
[2017-10-21] MEDS: LACTATED RINGERS 1,000 ML IV SCH (08:04)
[2017-10-21] MEDS: LEVOTHYROXINE 75 MCG TABLET PO SCH (08:16)
[2017-10-21] MEDS ORDERED: ASPIRIN 81 MG TAB.CHEW PO SCH (09:00)
[2017-10-21] MEDS ORDERED: CLOPIDOGREL 75 MG TABLET PO SCH (09:00)
[2017-10-21] MEDS ORDERED: EZETIMIBE 10 MG TABLET PO SCH (09:00)
[2017-10-21] MEDS: DEXTROSE 5% IN WATER 1,000 ML IV SCH ×2 (09:33→20:38)
[2017-10-21] MEDS: LEVOFLOXACIN 250 MG/50 ML BAG IV SCH (09:56)
[2017-10-21] MEDS: MAGNESIUM OXIDE 400 MG TABLET PO SCH ×2 (09:57→20:39)
[2017-10-21] MEDS: FAMOTIDINE 20 MG TABLET PO SCH ×2 (09:58→20:39)
[2017-10-21] MEDS ORDERED: POTASSIUM PHOSPHATE 40 MEQ in DEXTROSE 5% IN WATER 500 ML IV ONE (10:00)
[2017-10-21] MEDS: HEPARIN 5,000 UNIT/ML VIAL SQ SCH ×2 (10:01→20:38)
[2017-10-21] MEDS ORDERED: BISACODYL 10 MG SUPP.RECT PR ONE (10:24)
--- NOTE | 2017-10-21 12:26 | Internal Med Progress Note ---
Medical - PN: Subj Patient information: Note initiated : 10/21/17 at 12:18 pm Service Date, if different from initiated Date: [] Patient: Sravanthi Ojeda a 72 y/o F admitted on 10/20/17 for Decreased loc. Chief Complaint: [] Interval history: Ms. Ojeda is a 72 year old F with h/o recurrent CVA, shower emobli? 3 months ago, was at [facility], h/o CLL in remission, presents to the hospital with complaints of weakness nearly since the time of discharge from [facility]. She has been having poor oral intake. Over the last 1 week the family also has noticed significantly decreased oral intake, weakness on the right side? and decreased mentation, increased forgetfulness and decreased recogniation of family members. her condition worsened overnight when this AM she was found to be slumped in her chair and almost unresponsive and hence brought to the hospital The patient was non verbal on my exam, it seems did nod her head to yes and no questions in the ER. (sedated for MRI) In the ER the patient was afebrile, VSS hb 9.1 chr, WBC 2.7 low (since july) Plat 177 Na 154, K 3.2, cl 106, bicatb 36, creat 1.7 baseline 0.7, glucose 144 esr 52, ua neg cxr neg CT head neg for acute issues, sinusitis noted. MRI head shows lacunar infarcts, 2-3 new. patient was admitted to the hospital for further management. family by bedside providing most history, Dr Juan is the oncologist managing her CLL< I spoke with him he noted that pt does not have active disease, thrombotic workup is neg, anticoagulation would nto be useful, but he plans to call me back I reveiwed CTA done recently which shows atherosclerotic disease, no vasculitis. Echo done as per family recently was neg. MADIHA was not advised by cardiology. 09/21 the patient is seen examined, she is opening her eyes spontaneously did not follow any commands, moves her upper arms spontaneously. She still seems dehydrated, Na is 155, calcium is improving but still high, Plan of care reviewed with patients family, plan for Xfer to [facility] to Dr Juan provided bed available. Family was contemplating Hospice care, but have not yet made their mind. Pertinent ROS: unable. - Constitutional Vitals: Vital Signs Temp Pulse Resp BP Pulse Ox 99.5 F H 77 18 192/72 96 10/21/17 08:01 10/20/17 23:03 10/21/17 08:01 10/21/17 08:01 10/21/17 08:01 Period Temp Pulse Resp BP Sys/Justice Pulse Ox Last 24 Hr 98.6 F-99.5 F 73-88 14-24 152-218/57-85 91-99 Intake and Output 10/20/17 10/21/17 10/21/17 21:59 05:59 13:59 Intake Total 612 / 612 1198 / 1198 Output Total 650 / 650 300 / 300 225 / 225 Balance -38 / -38 -300 / -300 973 / 973 Weight 115 lb Intake & Output: Intake & Output 10/20/17 10/21/17 10/21/17 21:59 05:59 13:59 Intake Total 612 / 612 1198 / 1198 Output Total 650 / 650 300 / 300 225 / 225 Balance -38 / -38 -300 / -300 973 / 973 Weight 115 lb Intake: IV 612 / 612 1198 / 1198 Dextrose 5%-Lr W/20Meq KCl 1, 42 / 42 000 ml @ 68 mls/hr IV .[id number] TABITHA Rx#:[id number] Lactated Ringers 1,000 ml @ 100 1148 / 1148 mls/hr IV .Q10H TABITHA Rx#: [id number] Output: Urine Catheter Amount 650 / 650 300 / 300 225 / 225 Uretheral (Maharaj) 575 / 575 Exam: Constitutional; Afebrile,awake not in distress. Eyes- No icterus, , No periorbital swelling Ears- Ext ear normal, Neck- Midline trachea, supple Respiratory system: Air Entry equal on both sides, No crackles or wheezing, no rhonchi. ant exam CVS- Rate rhythm regular, S1,S2 heard, no gallop, no rub. Abdomen- Soft nontender abdomen, no organomegaly, no tenderness, no guarding or rigidity, ED TECH- AOOx0, spontaneously moving all extremities. Medical - PN: Obj Da - Labs CBC & Chem 7: 10/21/17 03:30 10/21/17 03:30 Labs: Abnormal Lab Results 0710/21/17 10/20/17 03:30 03:30 16:36 WBC 2.6 L RBC 2.51 L Hgb 7.7 L Hct 24.2 L RDW 21.3 H Ballard % (Auto) 0.5 L Gran # 1.7 L Lymph # (Auto) 0.8 L Ballard # (Auto) 0 L ESR Sodium 155 H 154 H Potassium Chloride 111 H 109 H Carbon Dioxide 32 H 35 H BUN 28 H 33 H Creatinine 1.2 H 1.3 H Glucose 133 H Calcium 10.8 H 11.6 H Phosphorus 2.4 L Lactate Dehydrogenase 263 H C-Reactive Protein Total Protein 5.3 L Globulin 1.8 L Triglycerides 156 H 10/20/17 10/20/17 10:07 10:07 WBC 2.7 L RBC 2.93 L Hgb 9.1 L Hct 28.0 L RDW 20.9 H Ballard % (Auto) 0.1 L Gran # Lymph # (Auto) 0.7 L Ballard # (Auto) 0 L ESR 52 H Sodium 154 H Potassium 3.2 L Chloride Carbon Dioxide 36 H BUN 34 H Creatinine 1.4 H Glucose 144 H Calcium 12.5 H Phosphorus Lactate Dehydrogenase C-Reactive Protein 1.7 H Total Protein Globulin Triglycerides Meds: Medications Acetaminophen (Tylenol) 650 mg PO Q6HP PRN PRN Reason: PAIN/FEVER > 101 Albuterol/Ipratropium (Duoneb) 3 ml NEB Q4HRT PRN PRN Reason: Shortness Of Breath Or Wheezing Clopidogrel Bisulfate (Plavix) 75 mg PO DAILY [facility] Last Admin: 10/21/17 09:58 Dose: Not Given Ezetimibe (Zetia) 10 mg PO QDAY [facility] Last Admin: 10/21/17 09:58 Dose: Not Given Famotidine (Pepcid) 20 mg PO BID [facility] Last Admin: 10/21/17 09:58 Dose: Not Given Heparin Sodium (Porcine) (Heparin) 5,000 unit SQ Q12 [facility] Last Admin: 10/21/17 10:01 Dose: 5,000 unit Levofloxacin (Levaquin) 250 mg in 50 mls @ 50 mls/hr IV Q24H [facility] Last Infusion: 10/21/17 10:56 Dose: Infused Potassium Phosphate 40 meq/ (Dextrose) 509.0909 mls @ 127.273 mls/hr IV ONCE ONE Stop: 10/21/17 13:59 Last Admin: 10/21/17 10:54 Dose: 127.273 mls/hr Dextrose (Dextrose 5% In Water) 1,000 mls @ 100 mls/hr IV .Q10H [facility] Last Admin: 10/21/17 09:33 Dose: 100 mls/hr Labetalol HCl (Trandate) 10 mg IV Q2HP PRN PRN Reason: Hypertension Levothyroxine Sodium (Synthroid) 75 mcg PO QAMAC [facility] Last Admin: 10/21/17 08:16 Dose: Not Given Magnesium Oxide (Magnesium Oxide) 400 mg PO BID [facility] Last Admin: 10/21/17 09:57 Dose: Not Given Naloxone HCl (Narcan) 0.1 mg IV Q2MIN PRN PRN Reason: Opiate Reversal Ondansetron HCl (Zofran) 4 mg IV Q4HP PRN PRN Reason: Nausea And Vomiting Oxycodone/Acetaminophen (Percocet 5-325 Mg) 1 tab PO Q4HP PRN PRN Reason: PAIN LEVEL 3-6 Simvastatin (Zocor) 20 mg PO HS [facility] Last Admin: 10/20/17 22:43 Dose: Not Given Sodium Chloride (Saline Flush) 10 ml IV Q8 [facility] Last Admin: 10/21/17 05:50 Dose: Not Given Medical - PN: A/P - Time Spent With Patient Total time spent is greater than 50% in coordination of care (as documented) at patient's floor/unit and/or counseling patient: - Narrative A/P Narrative: A/P Altered Mental status/ Metabolic vs ischemic encephalopathy Hypernatremia Neutropenia h/o CLL in remision h/o Shower embolus Hypokalemia Metabolic Alkalosis Hypercalcemia Acute Kidney Injury Acute lacunar infarct failure to thrive Plan monitor on tele continue IVF< change lr to d5w, repeat basic this PM family to contemplate whether they plan to take pt to [facility] for further eval vs home hospice await labs, lupus anticoagulant sent as pe Dr Juan On plavix now, but pt not tolerating po yet it seems start on statin had rash to lipitor it seems given recurrent cva, pt will benefit from statin overall poor prognosis await ST eval plan to xfer to [facility] tomorrow if family wishes to persue aggresive intervention for bone marrow biopsy. DVT hep sq Diet dysphagia diet ST eval ordered DNR code status.
[2017-10-21] MEDS ORDERED: POLYMYXN B OU SCH (13:01)
[2017-10-21] MEDS ORDERED: NEOMYCIN OU SCH (13:01)
[2017-10-21] MEDS ORDERED: GRAMICIDIN OU SCH (13:01)
[2017-10-21] MEDS: GENTAMICIN 0.3% OPHTH DROPS 5ML BOTTLE OU SCH ×3 (14:12→20:37)
[2017-10-21 15:11] LABS: Blood Urea Nitrogen 25 mg/dl (8-23)
[2017-10-21] MEDS: SIMVASTATIN 20 MG TABLET PO SCH (20:40)
[2017-10-22] MEDS ORDERED: ACETAMINOPHEN 650 MG/65 ML BOTTLE IV PRN ×2 (05:26→16:00)
[2017-10-22] MEDS: 0.9 % SODIUM CHLORIDE 10 ML SYRINGE IV SCH ×3 (05:32→23:06)
[2017-10-22] MEDS: GENTAMICIN 0.3% OPHTH DROPS 5ML BOTTLE OU SCH ×5 (05:32→21:32)
[2017-10-22 06:10] LABS: ALT/SGPT 19 U/l (0-40); Albumin/Globulin Ratio 1.7 (1.0-2.3); Alkaline Phosphatase 69 U/L (39-117); Bilirubin,Direct < 0.2 mg/dL (0.0-0.3); Blood Urea Nitrogen 20 mg/dl (8-23); Gamma Glutamyl Transpeptidase 17 U/L (5-36); Uric Acid 6.9 mg/dL (2.5-8.0)
[2017-10-22 06:18] LABS: Basophils # (Auto) 0 K/mcL (0.0-0.3); Basophils % (Auto) 0.4 % (0.0-2.0); Eosinophils # (Auto) 0.1 K/mcL (0.0-0.7); Eosinophils % (Auto) 3.2 % (0.0-7.0); Granulocytes % (Auto) 61.5 % (38.0-78.0); Lymphocytes # (Auto) 0.8 K/mcL (1.5-4.8); Lymphocytes % (Auto) 34.4 % (15.5-49.0); Mean Cell Volume 95.3 fL (80.0-100.0); Mean Corpuscular HGB Conc 32.7 g/dL (31.0-36.0); Mean Corpuscular Hemoglobin 31.1 pg (26.0-34.0); Monocytes # (Auto) 0 K/mcL (0.1-0.9); Monocytes % (Auto) 0.5 % (1.0-12.0); Platelet Count 141 K/mcL (140-440); RBC 2.28 M/mcL (4.00-5.20); Red Cell Distribution Width 21.1 % (11.5-14.5)
[2017-10-22] MEDS: DEXTROSE 5% IN WATER 1,000 ML IV SCH ×2 (06:48→19:38)
[2017-10-22] MEDS ORDERED: morphine 20 MG/ML ORAL.CONC SL PRN ×2 (07:59→16:00)
[2017-10-22] MEDS ORDERED: POTASSIUM CHLORIDE 80 MEQ in DEXTROSE 5% IN WATER 1,000 ML IV ONE (08:00)
--- NOTE | 2017-10-22 12:41 | Internal Med Progress Note ---
Medical - PN: Subj Patient information: Note initiated : 10/22/17 at 12:40 pm Service Date, if different from initiated Date: [] Patient: Sravanthi Ojeda a 72 y/o F admitted on 10/20/17 for Decreased LOC/ Hypernatremia, Altered Mental Status. Chief Complaint: [] Interval history: Ms. Ojeda is a 72 year old F with h/o recurrent CVA, shower emobli? 3 months ago, was at [facility], h/o CLL in remission, presents to the hospital with complaints of weakness nearly since the time of discharge from [facility]. She has been having poor oral intake. Over the last 1 week the family also has noticed significantly decreased oral intake, weakness on the right side? and decreased mentation, increased forgetfulness and decreased recogniation of family members. her condition worsened overnight when this AM she was found to be slumped in her chair and almost unresponsive and hence brought to the hospital The patient was non verbal on my exam, it seems did nod her head to yes and no questions in the ER. (sedated for MRI) In the ER the patient was afebrile, VSS hb 9.1 chr, WBC 2.7 low (since july) Plat 177 Na 154, K 3.2, cl 106, bicatb 36, creat 1.7 baseline 0.7, glucose 144 esr 52, ua neg cxr neg CT head neg for acute issues, sinusitis noted. MRI head shows lacunar infarcts, 2-3 new. patient was admitted to the hospital for further management. family by bedside providing most history, Dr Juan is the oncologist managing her CLL< I spoke with him he noted that pt does not have active disease, thrombotic workup is neg, anticoagulation would nto be useful, but he plans to call me back I reveiwed CTA done recently which shows atherosclerotic disease, no vasculitis. Echo done as per family recently was neg. MADIHA was not advised by cardiology. 09/21 the patient is seen examined, she is opening her eyes spontaneously did not follow any commands, moves her upper arms spontaneously. She still seems dehydrated, Na is 155, calcium is improving but still high, Plan of care reviewed with patients family, plan for Xfer to [facility] to Dr Juan provided bed available. Family was contemplating Hospice care, but have not yet made their mind. 09/22 Pt seen examined, no acute overnight issues, pt hb is low, K was low the patient seems better today a bit, but still talks very softly,wants to drink some coffee I had long discussion with the patients , who notes that the patient would not like to live a life like this, there is significant decline in pts condition, including lack of ability to swallow well. he would prefer to be hospice/ comfort care based on pts wishes , his wishes and family wishes. Pt non essential meds stopped, xfer to med surg comfort care status to be initiated. Pertinent ROS: unable - Constitutional Vitals: Vital Signs Temp Pulse Resp BP Pulse Ox 97.6 F 85 16 163/68 94 10/22/17 12:00 10/22/17 06:17 10/22/17 12:00 10/22/17 12:00 10/22/17 12:00 Period Temp Pulse Resp BP Sys/Justice Pulse Ox Last 24 Hr 97.6 F-99.8 F 85-88 16-16 150-208/54-85 93-95 Intake and Output 10/21/17 10/22/17 10/22/17 21:59 05:59 13:59 Intake Total 1496.0909 / 1496.0909 1000 / 1000 Output Total 500 / 500 200 / 200 Balance 996.0909 / 996.0909 -200 / -200 1000 / 1000 Weight 117 lb Intake & Output: Intake & Output 10/21/17 10/22/17 10/22/17 21:59 05:59 13:59 Intake Total 1496.0909 / 1496.0909 1000 / 1000 Output Total 500 / 500 200 / 200 Balance 996.0909 / 996.0909 -200 / -200 1000 / 1000 Weight 117 lb Intake: IV 1496.0909 / 1496.0909 1000 / 1000 Dextrose 5% in Water 1,000 ml @ 1000 / 1000 1000 / 1000 100 mls/hr IV .Q10H TABITHA Rx#: [id number] Output: Urine Catheter Amount 500 / 500 200 / 200 Other: Stool Size Smear Stool Color Brown # Bowel Movements 1 Exam: Constitutional; Afebrile awake, intermittently cooperative, not in distress. Respiratory system: Air Entry equal on both sides, No crackles or wheezing, no rhonchi. ant exam CVS- Rate rhythm regular, S1,S2 heard, no gallop, no rub. 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 Medical - PN: Obj Da - Labs CBC & Chem 7: 10/22/17 03:32 10/22/17 03:32 Labs: Abnormal Lab Results 10/22/17 10/22/17 10/21/17 03:32 03:32 14:28 WBC 2.4 L RBC 2.28 L Hgb 7.1 L Hct 21.8 L RDW 21.1 H [place] % (Auto) 0.5 L Gran # 1.5 L Lymph # (Auto) 0.8 L [place] # (Auto) 0 L ESR Sodium 149 H Potassium 3.0 L Chloride Carbon Dioxide 32 H 32 H BUN 25 H Creatinine 1.2 H Glucose 122 H 147 H Calcium Phosphorus Lactate Dehydrogenase 256 H C-Reactive Protein Total Protein 4.8 L Albumin 3.0 L Globulin 1.8 L Triglycerides 10/21/17 10/21/17 10/20/17 03:30 03:30 16:36 WBC 2.6 L RBC 2.51 L Hgb 7.7 L Hct 24.2 L RDW 21.3 H [place] % (Auto) 0.5 L Gran # 1.7 L Lymph # (Auto) 0.8 L [place] # (Auto) 0 L ESR Sodium 155 H 154 H Potassium Chloride 111 H 109 H Carbon Dioxide 32 H 35 H BUN 28 H 33 H Creatinine 1.2 H 1.3 H Glucose 133 H Calcium 10.8 H 11.6 H Phosphorus 2.4 L Lactate Dehydrogenase 263 H C-Reactive Protein Total Protein 5.3 L Albumin Globulin 1.8 L Triglycerides 156 H 10/20/17 10/20/17 10:07 10:07 WBC 2.7 L RBC 2.93 L Hgb 9.1 L Hct 28.0 L RDW 20.9 H [place] % (Auto) 0.1 L Gran # Lymph # (Auto) 0.7 L [place] # (Auto) 0 L ESR 52 H Sodium 154 H Potassium 3.2 L Chloride Carbon Dioxide 36 H BUN 34 H Creatinine 1.4 H Glucose 144 H Calcium 12.5 H Phosphorus Lactate Dehydrogenase C-Reactive Protein 1.7 H Total Protein Albumin Globulin Triglycerides Meds: Medications Albuterol/Ipratropium (Duoneb) 3 ml NEB Q4HRT PRN PRN Reason: Shortness Of Breath Or Wheezing Gentamicin Sulfate (Gentamicin 0.3% Ophth Drops) 1 gtt OU Q4HWA [facility] Last Admin: 10/22/17 09:56 Dose: 1 gtt Dextrose (Dextrose 5% In Water) 1,000 mls @ 100 mls/hr IV .Q10H [facility] Last Admin: 10/22/17 06:48 Dose: 100 mls/hr Acetaminophen (Ofirmev) 650 mg in 65 mls @ 130 mls/hr IV Q6HP PRN PRN Reason: PAIN/FEVER > 101 Last Admin: 10/22/17 11:34 Dose: 130 mls/hr Morphine Sulfate (Morphine) 2 mg SL Q2HP PRN PRN Reason: pain/anxiety Naloxone HCl (Narcan) 0.1 mg IV Q2MIN PRN PRN Reason: Opiate Reversal Ondansetron HCl (Zofran) 4 mg IV Q4HP PRN PRN Reason: Nausea And Vomiting Sodium Chloride (Saline Flush) 10 ml IV Q8 [facility] Last Admin: 10/22/17 05:32 Dose: Not Given Medical - PN: A/P - Time Spent With Patient Total time spent is greater than 50% in coordination of care (as documented) at patient's floor/unit and/or counseling patient: - Narrative A/P Narrative: A/P Altered Mental status/ Metabolic vs ischemic encephalopathy Hypernatremia Neutropenia h/o CLL in remision h/o Shower embolus Hypokalemia Metabolic Alkalosis Hypercalcemia Acute Kidney Injury Acute lacunar infarct failure to thrive Plan xfer to med surg d/c most med except comfort care plan for home hospice when arrangements are made DVT hep sq libralise diet to regular for comfort DNR cc code status.
[2017-10-22] MEDS ORDERED: LORazepam 2 MG/ML VIAL IV PRN (16:00)
[2017-10-22] MEDS ORDERED: IPRATROPIUM/ALBUTEROL 3 ML AMPUL.NEB NEB PRN (16:00)
[2017-10-22] MEDS ORDERED: ONDANSETRON 4 MG/2 ML VIAL IV PRN (16:00)
[2017-10-22] MEDS ORDERED: LACTOPEROXI/GLUC OXID/POT THIO 1 EACH GEL..EA. TOPICAL PRN (16:00)
[2017-10-22] MEDS ORDERED: NALOXONE HCL 0.4 MG/ML VIAL IV PRN (16:00)
[2017-10-22] MEDS: NYSTATIN 500,000 UNITS/5 ML ORAL.SUSP SSW SCH ×2 (16:30→21:32)
[2017-10-22] MEDS ORDERED: NYSTATIN 500,000 UNITS/5 ML ORAL.SUSP SSW SCH ×2 (17:00)
[2017-10-22] MEDS: LEVOTHYROXINE 75 MCG TABLET PO SCH (19:37)
[2017-10-22] MEDS: DOCUSATE SODIUM 100 MG CAPSULE PO SCH (21:32)
[2017-10-23] MEDS: 0.9 % SODIUM CHLORIDE 10 ML SYRINGE IV SCH (05:34)
[2017-10-23] MEDS: GENTAMICIN 0.3% OPHTH DROPS 5ML BOTTLE OU SCH ×4 (06:09→22:59)
--- NOTE | 2017-10-23 13:44 | Internal Med Progress Note ---
Medical - PN: Subj Patient information: Note initiated : 10/23/17 at 1:42 pm Service Date, if different from initiated Date: [] Patient: Sravanthi Ojeda a 72 y/o F admitted on 10/20/17 for Decreased LOC/ Hypernatremia, Altered Mental Status. Chief Complaint: [] Interval history: Ms. Ojeda is a 72 year old F with h/o recurrent CVA, shower emobli? 3 months ago, was at [facility], h/o CLL in remission, presents to the hospital with complaints of weakness nearly since the time of discharge from [facility]. She has been having poor oral intake. Over the last 1 week the family also has noticed significantly decreased oral intake, weakness on the right side? and decreased mentation, increased forgetfulness and decreased recogniation of family members. her condition worsened overnight when this AM she was found to be slumped in her chair and almost unresponsive and hence brought to the hospital The patient was non verbal on my exam, it seems did nod her head to yes and no questions in the ER. (sedated for MRI) In the ER the patient was afebrile, VSS hb 9.1 chr, WBC 2.7 low (since july) Plat 177 Na 154, K 3.2, cl 106, bicatb 36, creat 1.7 baseline 0.7, glucose 144 esr 52, ua neg cxr neg CT head neg for acute issues, sinusitis noted. MRI head shows lacunar infarcts, 2-3 new. patient was admitted to the hospital for further management. family by bedside providing most history, Dr Juan is the oncologist managing her CLL< I spoke with him he noted that pt does not have active disease, thrombotic workup is neg, anticoagulation would nto be useful, but he plans to call me back I reveiwed CTA done recently which shows atherosclerotic disease, no vasculitis. Echo done as per family recently was neg. MADIHA was not advised by cardiology. 09/21 the patient is seen examined, she is opening her eyes spontaneously did not follow any commands, moves her upper arms spontaneously. She still seems dehydrated, Na is 155, calcium is improving but still high, Plan of care reviewed with patients family, plan for Xfer to [facility] to Dr Juan provided bed available. Family was contemplating Hospice care, but have not yet made their mind. 09/22 Pt seen examined, no acute overnight issues, pt hb is low, K was low the patient seems better today a bit, but still talks very softly,wants to drink some coffee I had long discussion with the patients , who notes that the patient would not like to live a life like this, there is significant decline in pts condition, including lack of ability to swallow well. he would prefer to be hospice/ comfort care based on pts wishes , his wishes and family wishes. Pt non essential meds stopped, xfer to med surg comfort care status to be initiated. 09/23 Patient seen and examined no acute overnight events. Patient remains comfortable, essentially unchanged since yesterday. She does not come to get well but sometimes nods. Pertinent ROS: unable - Constitutional Vitals: Vital Signs Temp Pulse Resp BP Pulse Ox 98.4 F 81 14 176/67 95 10/23/17 06:53 10/22/17 20:00 10/23/17 06:53 10/23/17 06:53 10/23/17 06:53 Period Temp Pulse Resp BP Sys/Justice Pulse Ox Last 24 Hr 98.4 F-98.8 F 81 14-18 159-176/67-68 94-95 Intake and Output 10/22/17 10/23/17 10/23/17 21:59 05:59 13:59 Intake Total 930 / 930 Output Total 525 / 525 750 / 750 Balance 405 / 405 -750 / -750 Weight 117 lb Intake & Output: Intake & Output 10/22/17 10/23/17 10/23/17 21:59 05:59 13:59 Intake Total 930 / 930 Output Total 525 / 525 750 / 750 Balance 405 / 405 -750 / -750 Weight 117 lb Intake: IV 930 / 930 Dextrose 5% in Water 1,000 ml @ 930 / 930 100 mls/hr IV .Q10H TABITHA Rx#: [id number] Output: Urine Catheter Amount 525 / 525 750 / 750 Other: Stool Size Smear Smear Stool Color Brown Brown Stool Consistency Loose Liquid # Bowel Movements 1 # of times incontinent of 1 Bowels Exam: Constitutional; Afebrile, cooperative, alert, not in distress. Respiratory system: Air Entry equal on both sides, No crackles or wheezing, no rhonchi. anterior exam CVS- Rate rhythm regular, S1,S2 heard, no gallop, no rub. Abdomen- Soft nontender abdomen, no organomegaly, no tenderness, no guarding or rigidity, Medical - PN: Obj Da - Labs CBC & Chem 7: 10/22/17 03:32 10/22/17 03:32 Labs: Abnormal Lab Results 10/22/17 10/22/17 10/21/17 03:32 03:32 14:28 WBC 2.4 L RBC 2.28 L Hgb 7.1 L Hct 21.8 L RDW 21.1 H Riley % (Auto) 0.5 L Gran # 1.5 L Lymph # (Auto) 0.8 L Riley # (Auto) 0 L Sodium 149 H Potassium 3.0 L Chloride Carbon Dioxide 32 H 32 H BUN 25 H Creatinine 1.2 H Glucose 122 H 147 H Calcium Phosphorus Lactate Dehydrogenase 256 H Total Protein 4.8 L Albumin 3.0 L Globulin 1.8 L Triglycerides 10/21/17 10/21/17 10/20/17 03:30 03:30 16:36 WBC 2.6 L RBC 2.51 L Hgb 7.7 L Hct 24.2 L RDW 21.3 H Riley % (Auto) 0.5 L Gran # 1.7 L Lymph # (Auto) 0.8 L Riley # (Auto) 0 L Sodium 155 H 154 H Potassium Chloride 111 H 109 H Carbon Dioxide 32 H 35 H BUN 28 H 33 H Creatinine 1.2 H 1.3 H Glucose 133 H Calcium 10.8 H 11.6 H Phosphorus 2.4 L Lactate Dehydrogenase 263 H Total Protein 5.3 L Albumin Globulin 1.8 L Triglycerides 156 H Meds: Medications Albuterol/Ipratropium (Duoneb) 3 ml NEB Q4HRT PRN PRN Reason: Shortness Of Breath Or Wheezing Docusate Sodium (Colace) 100 mg PO BID [facility] Last Admin: 10/22/17 21:32 Dose: 100 mg Gentamicin Sulfate (Gentamicin 0.3% Ophth Drops) 1 gtt OU Q4HWA [facility] Last Admin: 10/23/17 06:09 Dose: 1 gtt Glucose Oxid/Lactoperoxid/Muramidas (Biotene) 1 each TOPICAL PRN PRN PRN Reason: Dry Mouth Lorazepam (Ativan) 0 mg IV Q1HP PRN; Protocol PRN Reason: ANXIETY/SEDATION Morphine Sulfate (Morphine) 2 mg SL Q2HP PRN PRN Reason: pain/anxiety Morphine Sulfate (Morphine) 4 mg NEB Q4HP PRN PRN Reason: Shortness Of Breath Nystatin (Nystatin) 500,000 units SSW QID TABITHA Last Admin: 10/22/17 21:32 Dose: 500,000 units Medical - PN: A/P - Time Spent With Patient Total time spent is greater than 50% in coordination of care (as documented) at patient's floor/unit and/or counseling patient: - Narrative A/P Narrative: A/P Altered Mental status/ Metabolic vs ischemic encephalopathy Hypernatremia Neutropenia h/o CLL in remision h/o Shower embolus Hypokalemia Metabolic Alkalosis Hypercalcemia Acute Kidney Injury Acute lacunar infarct failure to thrive Plan xfer to med surg d/c most med except comfort care plan for home hospice when arrangements are made anticipate d/c to home with hospice tomorrow DVT hep sq liberalize diet to regular for comfort DNR cc code status.
[2017-10-23] MEDS: NYSTATIN 500,000 UNITS/5 ML ORAL.SUSP SSW SCH ×4 (14:06→22:59)
[2017-10-23] MEDS ORDERED: LORazepam 1 MG TABLET SL PRN (18:26)
[2017-10-23] MEDS: DOCUSATE SODIUM 100 MG CAPSULE PO SCH ×2 (18:41→22:59)
[2017-10-24] MEDS: GENTAMICIN 0.3% OPHTH DROPS 5ML BOTTLE OU SCH ×2 (05:17→10:40)
--- NOTE | 2017-10-24 09:54 | Discharge Summary ---
Medical - DS: Prov Patient information: Note initiated : 10/24/17 at 9:49 am Service Date, if different from initiated Date: [] Patient: Sravanthi Ojeda a 72 y/o F admitted on 10/20/17 for Decreased LOC/ Hypernatremia, Altered Mental Status. Chief Complaint: [] Date of admission: 10/20/17 14:20 Discharge date: 10/24/17 Primary care physician: Seth Ramesh Admitting clinician: Adrian Junior Consults: 10/20/17 11:46 Consult to Physician [CONS] Stat Comment: Consulting Provider: Adrian Junior Reason For Exam: Physician to Consult Discharging clinician: Adrian Junior Medical - DS: Meds - Discharge Medications Prescriptions: LORazepam [Ativan] 1 mg SL Q4HP PRN #30 tab PRN Reason: Anxiety morphine 4 mg SL Q2HP PRN #100 ml PRN Reason: pain/anxiety Active and Home Medications: Home Medications aspirin 81 mg tablet,delayed release 81 mg PO QDAY 06/27/17 [History Confirmed 10/20/17 Last Taken Unknown] ezetimibe 10 mg tablet 10 mg PO QDAY #90 tab 08/02/17 [Rx Confirmed 10/20/17 Last Taken Unknown] ranitidine 150 mg tablet 150 mg PO BID #120 tab 08/18/17 [Rx Confirmed 10/20/17 Last Taken Unknown] albuterol sulfate HFA 90 mcg/actuation aerosol inhaler 2 puff INHALATION Q6H PRN #8.5 g 08/23/17 [Rx Confirmed 10/20/17 Last Taken Unknown] magnesium oxide 400 mg capsule 400 mg PO BID #180 cap 08/24/17 [Rx Confirmed Last Taken Unknown] levothyroxine 75 mcg tablet 75 mcg PO QDAY #90 tab 09/28/17 [Rx Confirmed Last Taken Unknown] Levofloxacin [Levaquin] 500 mg PO DAILY 10/20/17 [History Confirmed 10/20/17 Last Taken Unknown] Medical - DS: Hosp Hospital course: Ms. Ojeda is a 72 year old F with h/o recurrent CVA, shower emobli? 3 months ago, was at [facility], h/o CLL in remission, presents to the hospital with complaints of weakness nearly since the time of discharge from [facility]. She has been having poor oral intake. Over the last 1 week the family also has noticed significantly decreased oral intake, weakness on the right side? and decreased mentation, increased forgetfulness and decreased recognition of family members. her condition worsened overnight when this AM she was found to be slumped in her chair and almost unresponsive and hence brought to the hospital The patient was non verbal on my exam, it seems did nod her head to yes and no questions in the ER. (sedated for MRI) MRI head shows lacunar infarcts, 2-3 new. patient was admitted to the hospital for further management. I reviewed CTA done recently which shows atherosclerotic disease, no vasculitis. Echo done as per family recently was neg. MADIHA was not advised by cardiology. The patient electrolyte disturbances were corrected with some improvement in cognition, but pt still did not speak, unable to swallow, on speaking with the medical service technician initially the plan was to transfer pt to [place] for bone marrow biopsy and further eval, however after discussing with the patients and rest of the family it became clear that the patient did not wish to feeding tubes and the lifestyle that continued aggresive intervention would bring. The family chose to forego aggresive intervention and opted for hospice care. The patient was referred to home hospice, and the patient will be discharged home wit home hospice today. Discharge diagnosis: Acute CVA - Time Spent with Patient Total time spent providing and/or coordinating discharge services: Greater than 30 minutes Medical - DS: Exam - Constitutional Vitals: Vital Signs Temp Pulse Pulse Resp BP Pulse Ox 10/24/17 06:34 98.6 F 16 170/70 95 10/24/17 03:26 90 16 92 10/24/17 01:30 89 16 92 10/24/17 00:13 90 18 90 10/23/17 22:49 87 18 92 10/23/17 21:22 18 10/23/17 20:00 87 93 Intake and Output 10/23/17 10/24/17 10/24/17 21:59 05:59 13:59 Intake Total 0 / 0 Output Total 400 / 400 175 / 175 Balance -400 / -400 -175 / -175 Intake: Oral 0 / 0 Output: Urine Catheter Amount 400 / 400 175 / 175 Additional comments: Constitutional; Afebrile, awake, responds to commands intermittently, not in distress. Medical - DS: A/P - Patient/Caregiver Discharge Instructions Activity: increase activity as tolerated Diet: Regular Diet (comfort measures) Additional Instructions: Discharge home with home hospice Transfer to home via ambulance Morphine and ativan as needed for comfort measures, further titration of medication as per hospice team. - Follow up Plan Follow up with: Seth Ramesh MD [Primary Care Provider] - Disposition: Hospice - Home Prognosis: Fair Rehab Potential: Fair I certify that the patient requires SNF services: No Overall status at discharge: patient is not back to baseline
[2017-10-24] MEDS: NYSTATIN 500,000 UNITS/5 ML ORAL.SUSP SSW SCH (10:40)
[2017-10-24] MEDS: DOCUSATE SODIUM 100 MG CAPSULE PO SCH (10:40)
== END 2017-10-24 12:38 | disposition hospice, home (50) | DRG 64 ==
LOC: ED 09:44 → MEDSUR 14:20 → ICU 17:25 → MEDSUR 10-22 16:45
PROVIDERS: ADMIT Internal Medicine; ATTEND Internal Medicine